=== PATIENT | female | born 1935 | race Caucasian/White ===

== ENCOUNTER → 2017-11-06 | Outpatient (CLI) | payer MEDICARE ==
[~2017-11-06] MED LIST: ACE3 PO; ALB17R INH; ALBU8.5H12 IH; AMI25 PO; AMO500 PO; AMOX-559 PO; CALC-734 PO; CYC10 PO; GUIDMUD PO; HYDR473S4 PO; IBUP-1618 PO; IBUP200C71 PO; IBUP600T22 PO; KET10 PO; MULT1TAB64 PO; NO RTN MEDS; NONE CURRENT; OMEP-125 PO; PER PO; POTA10CA40 PO; PRE20 PO; PRED-420 PO; PRED20TA6 PO; TRA50 PO; [UNRECOGNIZED DRUG - CODE] PO
--- NOTE | 2017-11-06 16:39 | RADIOLOGY IMAGING REPORT ---
FACILITY: [facility] PATIENT NAME: Charu Bañuelos : 1935 MR: [id number] V: [id number] EXAM DATE: ORDERING PHYSICIAN: HIRAL CARRILLO TECHNOLOGIST: Location: [facility] [place] Patient: Charu Bañuelos : 1935 Visit/Account:[id number] Date of Sevice: 11/06/2017 CHEST PA AND LAT HISTORY: Cough. History of smoking. COMPARISON: Chest x-rays are recommended 2012. FINDINGS: Cardiomediastinal contours: The heart is mildly enlarged and there is prominence of the central pulmo nary vessels suggesting chronic pulmonary hypertension. Lungs and pleura: There is mild hyperinflation of the lungs but no findings of an infiltrate or conge stive heart failure. Again noted is linear density in the left lung base suggestive of scar. Bones/soft tissues: There are no findings of a fracture. IMPRESSION: 1. Stable chest x-ray with mild cardiomegaly and prominence of central pulmonary vessels suggestive of chronic pulmonary hypertension. 2. Mild hyperinflation of the lungs. 3. No infiltrate. Report Dictated By: Matthew Morales MD at 11/06/2017 4:34 PM Report E-Signed By: Matthew Morales MD at 11/06/2017 4:36 PM WSN:[email or web address]
== END ==
LOC: RAD 14:39
PROVIDERS: ATTEND Nurse Practitioner Family
DX: R91.8 Other nonspecific abnormal finding of lung field (principal); I51.7 Cardiomegaly; Z87.891 Personal history of nicotine dependence
CPT/HCPCS: 71046

== ENCOUNTER → 2017-12-27 | Outpatient (CLI) | payer MEDICARE ==
[~2017-12-27] MED LIST changes: +ALBU8.5H IH; +ARFO15VI IH; +BUDE0.5A6 IH; +IPRA3AMP21 IH; +OXYGENHOME INH; +PRE5 PO
[2017-12-27 13:38] LABS: PLATELET COUNT, AUTOMATED 248 K/uL (150-450)
== END ==
LOC: LAB 13:17
PROVIDERS: ATTEND Internal Medicine
DX: J44.9 Chronic obstructive pulmonary disease, unspecified (principal); R09.02 Hypoxemia; M19.90 Unspecified osteoarthritis, unspecified site
CPT/HCPCS: 36415; 82040; 82247; 82310; 82374; 82435; 82565; 82947; 84075; 84132; 84155; 84295; 84443; 84450; 84460; 84520; 85025

== ENCOUNTER → 2018-01-01 | Outpatient (CLI) | payer MEDICARE ==
--- NOTE | 2018-01-02 14:49 | RADIOLOGY IMAGING REPORT ---
FACILITY: [facility] PATIENT NAME: LASHAUN RODRIGUEZ : [id number] MR: [id number] V: [id number] EXAM DATE: ORDERING PHYSICIAN: FLORES RENDON TECHNOLOGIST: Dean Griggs EXAMINATION:TWO-DIMENSIONAL ECHOCARDIOGRAPH REASON:HYPOXIA/ SHORTNESS OF BREATH/ COPD. 2D Measurements (normal values in centimeters) LV endLV endRV endVent.LV PostAorticLeftPercent DiastolicSystolicDiastolicSeptumWallRootAtriumShortening (3.5-5.7)(0.9-2.6)(0.6-1.1)(0.6-1.1)(2.0-3.7)(1.9-4.0)(25-35%) [id number]% STROKE VOLUME: 38ml ESTIMATED EJECTION FRACTION: 70% PARASTERNAL LONG AXIS: Overall left ventricular systolic function appears to be normal. Right ventricle is border line enlarged and appears to contract normally. The TAPSE is measured at 2.2. There is mild concentric left ventricular thickening but no evidence for any outflow tract obstruction. Color examination of the valves reveals a trace of mitral insufficiency. The aortic valve appears to open normally. The mitral valve also appears to open normally. PARASTERNAL SHORT AXIS: Again overall left ventricular systolic function appears to be normal. No specific wall motion abnormalities are noted. Aortic valve is trileaflet in configuration with minimal aortic sclerosis. Color examination of the pulmonic valve reveals a mild amount of pulmonic insufficiency. Color examination of the aortic valve was unremarkable. Color examination of the tricuspid valve reveals a mild amount of tricuspid insufficiency. APICAL FOUR AND TWO CHAMBER: Again normal left ventricular systolic function. The right ventricle is the upper range of normal in size. Aortic valve area and mitral valve area both measure within normal range of 2.2 and 3.3cm2 respectively. Left atrial volume is measured within normal range of 17ml/m2. The right atrial volume is moderately increased at 35ml/m2. The tricuspid regurgitation Vmax measured 3.23m/sec. SUBCOSTAL VIEW: No pericardial effusion was noted. No atrioseptal or ventriculoseptal defects were appreciated. Doppler examination of the mitral valve in diastole does reveal the A wave > E wave. IVC is normal in size. OVERALL IMPRESSION: 1. Normal left ventricular ejection fraction of approximately 70% with a Grade 1 mild decrease in diastolic function. 2. Borderline enlargement of the right ventricle with moderate enlargement of the right atrium. The left sided heart chambers are normal in size. 3. Trileaflet aortic valve with minimal aortic sclerosis but no stenosis and no insufficiency was noted. 4. A trace of mitral insufficiency with no mitral stenosis. 5. A mild amount of pulmonic and tricuspid insufficiency with estimated right ventricular systolic pressures at 45mm Hg which does include an estimated right atrial pressure of 3mm Hg indicating moderate pulmonary hypertension and increased right ventricular systolic pressure. Dictated by: Danii Rico M.D. on 01/01/2018 at 21:17 Transcribed by: BUCKY on 01/02/2018 at 10:31 Approved by: Danii Rico M.D. on 01/02/2018 at 14:47 [facility]
== END ==
LOC: US 00:58
PROVIDERS: ATTEND Internal Medicine
DX: I50.30 Unspecified diastolic (congestive) heart failure (principal); I51.7 Cardiomegaly; I37.1 Nonrheumatic pulmonary valve insufficiency; I25.10 Atherosclerotic heart disease of native coronary artery without angina pectoris; I07.1 Rheumatic tricuspid insufficiency; I34.0 Nonrheumatic mitral (valve) insufficiency; I27.20 Pulmonary hypertension, unspecified
CPT/HCPCS: 93306

== ENCOUNTER → 2018-01-04 | Outpatient (CLI) | payer MEDICARE | LOC: RESP 04:45 | PROVIDERS: ATTEND Internal Medicine | DX: J98.4 Other disorders of lung (principal) | CPT/HCPCS: 94060; 94726; 94729 ==

== ENCOUNTER 2018-06-25 09:00 | Outpatient (RCR) | payer MEDICARE, MEDICAID ==
[~2018-06-25 09:00] MED LIST changes: +ALBU1.257 IH; +IBUP-136 PO; -IBUP200C71 PO; +IPRA3AMP10 IH; -IPRA3AMP21 IH; +METH4TAB66 PO; +PRED2.5T6 PO
[2018-06-27] MEDS ORDERED: tylenol PM (09:39)
[2018-07-03] MEDS ORDERED: ALBU2.5V36 INH ×3 (15:26→15:35)
[2018-07-03] MEDS ORDERED: PNEU0.5D3 IM (16:02)
[2018-07-03] MEDS ORDERED: FLU180SY11 IM (16:02)
[2018-07-05] MEDS ORDERED: APIX5TAB PO (11:57)
[2018-07-12] MEDS ORDERED: DIAZ-308 PO (12:13)
== END 2018-07-14 ==
LOC: CARD 09:00
PROVIDERS: ATTEND Internal Medicine
DX: J43.8 Other emphysema (principal); R06.00 Dyspnea, unspecified
CPT/HCPCS: G0424 ×18

== ENCOUNTER 2018-06-27 09:26 | Emergency (ER) | payer MEDICARE, MEDICAID ==
--- NOTE | 2018-06-27 09:31 | ER Report ---
History and Physical Time Seen By MD: 09:31 HPI/ROS CHIEF COMPLAINT: Rapid heart rate HISTORY OF PRESENT ILLNESS: Patient is an 82-year-old female who was in the pulmonary clinic doing some exercising. Prior to the start of exercising her vital signs were taken and she was found to have a very fast heart rate of around 180 bpm. Patient was placed on a rhythm strip and found to be in "SVT". For this reason she was sent to the emergency department for further evaluation. Patient is symptom-free she does state that from time to time she does feel her heart beat fast but currently with a heart rate of 140 bpm she is symptom-free and does not feel like her heart is racing. She denies any chest pain or pressure. She has a history of COPD and is on chronic oxygen but denies any acute shortness of breath. Patient denies any recent illness. She denies any fevers or chills. REVIEW OF SYSTEMS: Constitutional: No fever, no chills. Eyes: No discharge. ENT: No sore throat. Cardiovascular: No chest pain, no palpitations. Respiratory: No cough, no shortness of breath. Gastrointestinal: No abdominal pain, no vomiting. Genitourinary: No hematuria. Musculoskeletal: No back pain. Skin: No rashes. Neurological: No headache. Allergies: Coded Allergies: Sulfa (Sulfonamide Antibiotics) (Verified Allergy, Intermediate, HIVES, 08/27/13) arformoterol (Verified Allergy, Unknown, 06/27/18) Home Meds Active Scripts Prednisone 5 Mg Tab (PREDNISONE 5 MG TAB) 5 Mg Tablet, 5 MG PO QDAY, #90 TAB 1 Refill Prov:FLORES RENDON MD 05/29/18 Oxygen (OXYGEN) Inha, 3 L INH DAILY, #3 L Prov:FLORES RENDON MD 01/14/18 Reported Medications [tylenol PM] No Conflict Check 06/27/18 Discontinued Scripts Albuterol Sulfate (ALBUTEROL SULFATE) 1.25 Mg/3 Ml Vial.neb, 1.25 MG IH QID PRN for SHORTNESS OF BREATH, #60 VIAL 9 Refills Prov:FLORES RENDON MD 06/05/18 Methylprednisolone (METHYLPREDNISOLONE) 4 Mg Tab.ds.pk, 4 MG PO DIRECTED, #1 DOSE-PACK Prov:FLORES RENDON MD 05/29/18 Albuterol Sulfate 90 Mcg/Act (PROAIR HFA 90 MCG/ACT) 8.5 Gm Hfa.aer.ad, 2 PUFF IH Q4-6H PRN for SHORTNESS OF BREATH, #1 INHALER 3 Refills Prov:FLORES RENDON MD 12/27/17 Past Medical/Surgical History Past medical history for allergic rhinitis, COPD, history of osteoarthritis, history of appendectomy in 2008 history of carpal tunnel release in [place] in 2010 Hx Smoking: Yes (1/2 ppd) Smoking Status: Former Smoker Hx Substance Use Disorder: No Hx Alcohol Use: Yes (1 in the evening) Constitutional Vital Sign - Last 24 Hours 06/27/18 06/27/18 06/27/18 06/27/18 09:31 09:31 09:44 09:56 Temp 98.4 Pulse 118 133 Resp 24 24 B/P (MAP) 128/81 (97) 128/81 Pulse Ox 91 97 O2 Delivery Nasal Cannula O2 Flow Rate 3.0 06/27/18 06/27/18 06/27/18 06/27/18 10:00 10:26 10:30 11:00 Pulse 126 Resp 20 B/P (MAP) 107/71 (83) 101/80 (87) 121/77 (92) Pulse Ox 96 06/27/18 06/27/18 06/27/18 06/27/18 11:05 11:30 11:35 12:00 Pulse 97 92 Resp 24 35 B/P (MAP) 102/88 (93) 112/87 (95) Pulse Ox 97 96 06/27/18 06/27/18 12:05 12:08 Pulse 89 Resp 14 B/P (MAP) 126/69 (88) Pulse Ox 97 Physical Exam General/Constitutional: Patient is awake, alert, nontoxic and in no acute respiratory distress. On chronic O2 Head: Normocephalic and atraumatic. Eyes: Conjunctival clear, Sclera are clear and anicteric. Ears:External canals are clear. Tympanic membranes are clear with normal landmarks and light reflex. Nares: No rhinorrhea or bleeding. Turbinates are pink and moist. Oropharyngeal: Mucous membranes are moist. Neck: Supple, no adenopathy. Cardiovascular: Heart is regular rhythm with tachycardic rate at approximately 130 bpm. Pulmonary: Lungs are clear to auscultation bilaterally. There are no wheezes, rales, or rhonchi. Chest rise is symmetrical Abdomen: Soft, nontender, no guarding or peritoneal signs. Extremities: No gross deformities, No peripheral cyanosis. Able to move all 4 extremities. Neuro: Alert and oriented X3, Skin: No rashes, skin is warm dry and well perfused. Medical Decision Making Data Points Result Diagram: 06/27/18 0939 06/27/18 0939 Laboratory Hematology Test 06/27/18 09:39 Red Blood Count 4.63 M/uL (4.17-5.56) Mean Corpuscular Volume 98.0 fL (80.0-96.0) Mean Corpuscular Hemoglobin 33.0 pg (26.0-33.0) Mean Corpuscular Hemoglobin Concent 33.7 g/dL (32.0-36.0) Red Cell Distribution Width 13.3 % (11.5-14.5) Mean Platelet Volume 8.8 fL (7.2-11.1) Neutrophils (%) (Auto) 59.5 % (39.4-72.5) Lymphocytes (%) (Auto) 30.6 % (17.6-49.6) Monocytes (%) (Auto) 7.8 % (4.1-12.4) Eosinophils (%) (Auto) 1.5 % (0.4-6.7) Basophils (%) (Auto) 0.6 % (0.3-1.4) Nucleated RBC Relative Count (auto) 0.0 /100WBC Neutrophils # (Auto) 4.6 K/uL (2.0-7.4) Lymphocytes # (Auto) 2.3 K/uL (1.3-3.6) Monocytes # (Auto) 0.6 K/uL (0.3-1.0) Eosinophils # (Auto) 0.1 K/uL (0.0-0.5) Basophils # (Auto) 0.0 K/uL (0.0-0.1) Nucleated RBC Absolute Count (auto) 0.00 K/uL Prothrombin Time 12.7 seconds (12.0-14.4) Prothromb Time International Ratio 0.95 Activated Partial Thromboplast Time 38 seconds (23-35) D-Dimer Quantitative (PE/DVT) 0.62 ug/ml (0-0.50) Sodium Level 145 mmol/L (137-145) Potassium Level 3.4 mmol/L (3.5-5.0) Chloride Level 107 mmol/L (98-107) Carbon Dioxide Level 26 mmol/L (22-31) Blood Urea Nitrogen 13 mg/dl (7-18) Creatinine 0.90 mg/dl (0.52-1.04) Glomerular Filtration Rate Calc > 60.0 Random Glucose 130 mg/dl (75-110) Calcium Level 9.7 mg/dl (8.4-10.2) Total Bilirubin 0.5 mg/dl (0.2-1.3) Aspartate Amino Transf (AST/SGOT) 29 U/L (0-35) Alanine Aminotransferase (ALT/SGPT) 30 U/L (0-56) Alkaline Phosphatase 124 U/L (0-126) Troponin I 0.031 ng/ml B-Type Natriuretic Peptide 50 pg/ml (0-100) Total Protein 8.1 g/dl (6.3-8.2) Albumin 4.6 g/dl (3.5-5.0) Chemistry Test 06/27/18 09:39 White Blood Count 7.7 k/uL (4.5-11.0) Red Blood Count 4.63 M/uL (4.17-5.56) Hemoglobin 15.3 g/dL (12.0-16.0) Hematocrit 45.4 % (34.0-47.0) Mean Corpuscular Volume 98.0 fL (80.0-96.0) Mean Corpuscular Hemoglobin 33.0 pg (26.0-33.0) Mean Corpuscular Hemoglobin Concent 33.7 g/dL (32.0-36.0) Red Cell Distribution Width 13.3 % (11.5-14.5) Platelet Count 242 K/uL (150-450) Mean Platelet Volume 8.8 fL (7.2-11.1) Neutrophils (%) (Auto) 59.5 % (39.4-72.5) Lymphocytes (%) (Auto) 30.6 % (17.6-49.6) Monocytes (%) (Auto) 7.8 % (4.1-12.4) Eosinophils (%) (Auto) 1.5 % (0.4-6.7) Basophils (%) (Auto) 0.6 % (0.3-1.4) Nucleated RBC Relative Count (auto) 0.0 /100WBC Neutrophils # (Auto) 4.6 K/uL (2.0-7.4) Lymphocytes # (Auto) 2.3 K/uL (1.3-3.6) Monocytes # (Auto) 0.6 K/uL (0.3-1.0) Eosinophils # (Auto) 0.1 K/uL (0.0-0.5) Basophils # (Auto) 0.0 K/uL (0.0-0.1) Nucleated RBC Absolute Count (auto) 0.00 K/uL Prothrombin Time 12.7 seconds (12.0-14.4) Prothromb Time International Ratio 0.95 Activated Partial Thromboplast Time 38 seconds (23-35) D-Dimer Quantitative (PE/DVT) 0.62 ug/ml (0-0.50) Glomerular Filtration Rate Calc > 60.0 Calcium Level 9.7 mg/dl (8.4-10.2) Total Bilirubin 0.5 mg/dl (0.2-1.3) Aspartate Amino Transf (AST/SGOT) 29 U/L (0-35) Alanine Aminotransferase (ALT/SGPT) 30 U/L (0-56) Alkaline Phosphatase 124 U/L (0-126) Troponin I 0.031 ng/ml B-Type Natriuretic Peptide 50 pg/ml (0-100) Total Protein 8.1 g/dl (6.3-8.2) Albumin 4.6 g/dl (3.5-5.0) Coagulation Test 06/27/18 09:39 Prothrombin Time 12.7 seconds Prothromb Time International Ratio 0.95 Activated Partial Thromboplast Time 38 seconds D-Dimer Quantitative (PE/DVT) 0.62 ug/ml EKG/Imaging EKG Interpretation EKG from August 2013 shows normal sinus rhythm no significant ST segment or T- wave abnormalities. Ventricular rate is 79 bpm. Imaging FACILITY: [facility] PATIENT NAME: Charu Bañuelos : 1935 MR: [id number] V: [id number] EXAM DATE: ORDERING PHYSICIAN: RAFA BALLESTEROS TECHNOLOGIST: Location: [facility] [place] Patient: Charu Bañuelos : 1935 Visit/Account:[id number] Date of Sevice: 06/27/2018 CHEST SINGLE AP HISTORY: Chest Pain COMPARISON: None available FINDINGS: Frontal view chest obtained. Lines/tubes: EKG leads overlie the thorax. Lungs/pleura: Mild flattening of the hemidiaphragms suggesting air trapping. No gross pulmonary infiltrate, effusion or pneumothorax. No evidence of congestive failure. Cardiomediastinum and lizzie: Atherosclerotic calcifications aortic arch. Bones/soft tissues: Degenerative changes right greater than left glenohumeral and acromioclavicular joints. Degenerative changes and levocurvature thoracolumbar spine. Additional findings: None. IMPRESSION: Chronic findings without evidence of an acute intrathoracic process or other significant interval change. Report Dictated By: Martín Aaron MD at 06/27/2018 11:07 AM Report E-Signed By: Martín Aaron MD at 06/27/2018 11:08 AM WSN:[id number] FACILITY: [facility] PATIENT NAME: Charu Bañuelos : 1935 MR: [id number] V: [id number] EXAM DATE: ORDERING PHYSICIAN: RAFA BALLESTEROS TECHNOLOGIST: Location: [facility] [place] Patient: Charu Bañuelos : 1935 Visit/Account:[id number] Date of Sevice: 06/27/2018 CTA CHEST WW/O CNTR (PULM ANG) HISTORY: tachycardia TECHNIQUE: CTA chest with intravenous contrast attention to pulmonary arteries. Sagittal, coronal and slab 3D MIP coronal reconstructed images were also cr eated for further evaluation and interpretation. One of the following dose optimization techniques was utilized in the performance of this exam: automated exposure control; adjustment of the mA and/or kV according to the patient's size; or use of an iterative reconstruction technique. Specific details can be referenced in the facility's radiology CT exam operational policy. CONTRAST: 75 cc Isovue-370 IV. COMPARISON: None. FINDINGS: Heart/vessels: There is no filling defect in either the right or left pulmonary arterial vascular tree. Lungs/pleura: In the left upper lobe there is a spiculated nodule that measures 1.9 x 2.4 cm. Right lung is clear. Mediastinum: Normal. Lymph nodes: There is mild prominence of the lymph nodes tissue in the left hilum. Right hilum is normal. Visualized upper abdomen: Visualized portions of the liver, spleen, adrenal glands, and pancreas are normal. Bones/soft tissues: Normal. IMPRESSION: 1. No evidence of pulmonary embolus. 2. Spiculated nodule versus a focal consolidation the left upper lobe. This would be a difficult lesion to biopsy, as a posterior approach would certainly create a pneumothorax, and an anterior approach would be difficult to reach. Differential diagnosis is pulmonary malignancy, versus pneumonia. If clinically indicated, a CT-guided biopsy could be attempted. 3. Clear right lung. Report Dictated By: Daren Lopez at 06/27/2018 11:32 AM Report E-Signed By: Daren Lopez at 06/27/2018 11:43 AM WSN:[id number] ED Course/Re-evaluation ED Course 06/27/2018 10:33:25 am heart rate is continuing to increase slowly. Current heart rate is in the mid 120s. Patient remains symptom and pain free. Initial troponin was negative d-dimer was slightly elevated. I discussed obtaining a CTA of the chest to look for PE. Patient and family member agrees with plan. 06/27/2018 10:50:05 am heart rate continues to decrease. Just prior to leaving for CAT scan heart rate was 105 bpm. My suspicion is the patient may have actually had a run of SVT which broke spontaneously and now she is having some residual tachycardia that is slowly decreasing over time. We will get the CT s can of the chest to look for PE. If negative we will likely have the patient be placed on a Holter monitor and have her follow-up with cardiology. Decision to Disposition Date: Jun 27, 2018 Decision to Disposition Time: 12:29 Depart Departure Latest Vital Signs Vital Signs Date Time Temp Pulse Resp B/P (MAP) Pulse Ox O2 Delivery O2 Flow Rate FiO2 06/27/18 12:08 126/69 (88) 06/27/18 12:05 89 14 97 06/27/18 09:44 3.0 06/27/18 09:31 98.4 Nasal Cannula Impression: Primary Impression: Tachycardia, paroxysmal Condition: Improved Disposition: HOME OR SELF-CARE Referrals: FLORES RENDON MD (PCP) Call this week to schedule a follow-up appointment reguarding the new finding of an left upper lung mass that was seen on CT scan today. It is likely that you will require some form of biopsy Patient Instructions: Supraventricular Tachycardia (GEN) Additional Instructions: Bring your prescription for your Holter monitor to the pulmonary and cardiology department to obtain a Holter monitor. The results will go directly to RAFA Goodman MD Jun 27, 2018 09:31
[2018-06-27] MEDS ORDERED: tylenol PM (09:39)
[2018-06-27] MEDS ORDERED: ASPIRIN 81 MG CHEW PO ONE (09:40)
[2018-06-27 09:49] LABS: PLATELET COUNT, AUTOMATED 242 K/uL (150-450)
--- NOTE | 2018-06-27 09:50 | EKG ---
[place] [facility] [place] LASHAUN RODRIGUEZ : [id number] MR: [id number] V: [id number] EXAM DATE: ORDERING PHYSICIAN: RAFA BALLESTEROS TECHNOLOGIST: Test Reason : rapid heart rate Blood Pressure : / mmHG Vent. Rate : 116 BPM Atrial Rate : 116 BPM P-R Int : 156 ms QRS Dur : 080 ms QT Int : 334 ms P-R-T Axes : 059 022 051 degrees QTc Int : 464 ms Sinus tachycardia Possible Left atrial enlargement Borderline ECG Confirmed by SCOOTER PANDYA ([id number]) on 06/27/2018 12:15:26 PM Referred By: Confirmed By:SCOOTER PANDYA
[2018-06-27 09:55] LABS: INR 0.95
[2018-06-27] MEDS ORDERED: NS(*) 0.9% 500 ML BAG 500 ML IV ONE (10:10)
[2018-06-27] MEDS ORDERED: NS(*) 0.9% 50 ML BAG 50 ML ONE (10:40)
[2018-06-27] MEDS ORDERED: IOPAMIDOL 76% 75 ML INFUS BTL 75 ML ONE (10:40)
--- NOTE | 2018-06-27 11:12 | RADIOLOGY IMAGING REPORT ---
FACILITY: [facility] PATIENT NAME: Charu Bañuelos : 1935 MR: [id number] V: [id number] EXAM DATE: ORDERING PHYSICIAN: RAFA BALLESTEROS TECHNOLOGIST: Location: [facility] - [place] Patient: Charu Bañuelos : 1935 Visit/Account:[id number] Date of Sevice: 06/27/2018 CHEST SINGLE AP HISTORY: Chest Pain COMPARISON: None available FINDINGS: Frontal view chest obtained. Lines/tubes: EKG leads overlie the thorax. Lungs/pleura: Mild flattening of the hemidiaphragms suggesting air trapping. No gross pulmonary infil trate, effusion or pneumothorax. No evidence of congestive failure. Cardiomediastinum and lizzie: Atherosclerotic calcifications aortic arch. Bones/soft tissues: Degenerative changes right greater than left glenohumeral and acromioclavicular j oints. Degenerative changes and levocurvature thoracolumbar spine. Additional findings: None. IMPRESSION: Chronic findings without evidence of an acute intrathoracic process or other significant interval leesa nge. Report Dictated By: Martín Aaron MD at 06/27/2018 11:07 AM Report E-Signed By: Martín Aaron MD at 06/27/2018 11:08 AM WSN:[id number]
--- NOTE | 2018-06-27 11:48 | RADIOLOGY IMAGING REPORT ---
FACILITY: [facility] - [place] PATIENT NAME: Charu Bañuelos : 1935 MR: [id number] V: [id number] EXAM DATE: ORDERING PHYSICIAN: RAFA BALLESTEROS TECHNOLOGIST: Location: [facility] - [place] Patient: Charu Bañuelos : 1935 Visit/Account:[id number] Date of Sevice: 06/27/2018 CTA CHEST WW/O CNTR (PULM ANG) HISTORY: tachycardia TECHNIQUE: CTA chest with intravenous contrast attention to pulmonary arteries. Sagittal, coronal a nd slab 3D MIP coronal reconstructed images were also created for further evaluation and interpretati on. One of the following dose optimization techniques was utilized in the performance of this exam: a utomated exposure control; adjustment of the mA and/or kV according to the patient's size; or use of an iterative reconstruction technique. Specific details can be referenced in the facility's radiolog y CT exam operational policy. CONTRAST: 75 cc Isovue-370 IV. COMPARISON: None. FINDINGS: Heart/vessels: There is no filling defect in either the right or left pulmonary arterial vascular tr ee. Lungs/pleura: In the left upper lobe there is a spiculated nodule that measures 1.9 x 2.4 cm. Right lung is clear. Mediastinum: Normal. Lymph nodes: There is mild prominence of the lymph nodes tissue in the left hilum. Right hilum is no rmal. Visualized upper abdomen: Visualized portions of the liver, spleen, adrenal glands, and pancreas are normal. Bones/soft tissues: Normal. IMPRESSION: 1. No evidence of pulmonary embolus. 2. Spiculated nodule versus a focal consolidation the left upper lobe. This would be a difficult lesi on to biopsy, as a posterior approach would certainly create a pneumothorax, and an anterior approach would be difficult to reach. Differential diagnosis is pulmonary malignancy, versus pneumonia. If cl inically indicated, a CT-guided biopsy could be attempted. 3. Clear right lung. Report Dictated By: Daren Lopez at 06/27/2018 11:32 AM Report E-Signed By: Daren Lopez at 06/27/2018 11:43 AM WSN:[id number]
[2018-06-27 12:08] VITALS: BP 126/69
== END 2018-06-27 12:17 | disposition home or self-care (01) ==
LOC: ER 09:29
DX: I47.9 Paroxysmal tachycardia, unspecified (principal); R79.89 Other specified abnormal findings of blood chemistry; R07.89 Other chest pain; I70.0 Atherosclerosis of aorta
CPT/HCPCS: 71045; 71275; 83880; 84484; 85025; 85379; 85610; 85730; 93005; 96360; 99284; A9270; J7040; J7050; Q9967; 82040; 82247; 82310; 82374; 82435; 82565; 82947; 84075; 84132; 84155; 84295; 84450; 84460; 84520

== ENCOUNTER → 2018-07-01 | Outpatient (CLI) | payer MEDICARE, MEDICAID ==
[~2018-07-01] MED LIST changes: +ALBU2.5V36 INH; +FLU180SY11 IM; +PNEU0.5D3 IM; +tylenol PM
--- NOTE | 2018-07-03 16:15 | RT HOLTER TEST ---
FACILITY[place] [facility] [place] PATIENT NAME: LASHAUN RODRIGUEZ : [id number] MR: [id number] V: [id number] EXAM DATE: ORDERING PHYSICIAN: RAFA BALLESTEROS TECHNOLOGIST: Hook-up date: 2018-07-01 13:12:00 Duration: 47:59:00 Test Indications: RAPID HEART BEAT Medications: DIARY NOT RETURNED 307326 QRS complexes 1581 Ventricular ectopics which represent <1 % of total QRS comp. 75799 Supraventricular ectopics which represent 5 % of total QRS comp. * Paced QRS complexes which represent % of total QRS comp. VENTRICULAR ECTOPY 1577 Isolated 3 Bigeminal Cycles 2 Couplets 0 Runs 0 Beats in Runs * Beats LONGEST at * BPM at :: -- * Beats FASTEST at * BPM at :: -- SUPRAVENTRICULAR ECTOPY 9208 Isolated 1000 Couplets 337 Runs 1156 Beats in Runs 9 Beats LONGEST at 131 BPM at 15:04:14 2018-07-01 3 Beats FASTEST at 205 BPM at 16:20:45 2018-07-01 HEART RATES 51 MIN at 06:00:32 2018-07-02 82 AVG 188 MAX at 16:14:33 2018-07-01 LONGEST RR 1.416 secs at 05:52:59 2018-07-02 S-T LEVELS Channel 1 -12.800 mm MIN at 13:12:00 2018-07-01 -12.800 mm MAX at 13:12:00 2018-07-01 Channel 2 -12.800 mm MIN at 13:12:00 2018-07-01 -12.800 mm MAX at 13:12:00 2018-07-01 Channel 3 -12.800 mm MIN at 13:12:00 2018-07-01 -12.800 mm MAX at 13:12:00 2018-07-01 Intermittent atrial fibrillation/flutter of variable length with episodes of tachycardia. Occasional ventricular ectopy with some bigeminy and rare couplets. No runs were recorded. No pausesof more than two (2) seconds were recorded. Confirmed by ANA RAY ([id number]) on 07/03/2018 4:15:17 PM Referred By: JUSTICE Overread By: ANA RAY
== END ==
LOC: RESP 01:39
PROVIDERS: ATTEND Emergency Medicine
DX: R00.2 Palpitations (principal)
CPT/HCPCS: 93225; 93226

== ENCOUNTER → 2018-07-15 | Outpatient (CLI) | payer MEDICARE, MEDICAID ==
[~2018-07-15] MED LIST changes: +APIX5TAB PO; +DIAZ-308 PO; +GADOBENATE 529MG/1ML 15ML VIAL IVP ONE; +LORA-788 PO; +RANI-366 PO
--- NOTE | 2018-07-15 16:18 | RADIOLOGY IMAGING REPORT ---
FACILITY: [facility] - [place] PATIENT NAME: Charu Bañuelos : 1935 MR: [id number] V: [id number] EXAM DATE: ORDERING PHYSICIAN: FLORES RENDON TECHNOLOGIST: Location: [facility] - [place] Patient: Charu Bañuelos : 1935 Visit/Account:[id number] Date of Sevice: 07/15/2018 BRAIN W W/O CONTRAST For staging ADDITIONAL PERTINENT HISTORY: None. COMPARISON STUDIES: None. TECHNIQUE: Multi-planar, multi-sequence brain MRI was performed with and without IV contrast adminis tration. Contrast: 14 mL MultiHance FINDINGS: Ventricles / sulci / fissures: Age-appropriate Masses / hemorrhage / midline shift: Negative. White matter: There are extensive abnormal areas of increased FLAIR and T2 signal intensity througho ut the subcortical and periventricular white matter without evidence of restricted diffusion mass eff ect or contrast enhancement Sanderson-white differentiation: Normal. Extra-axial fluid collections: Negative. Intracranial vasculature and dural sinuses: Negative. Skull base / calvarium: Negative. Visualized mastoid air cells / paranasal sinuses: Well aerated. Orbits: Negative. Upper neck:Negative. IMPRESSION: Extensive abnormal white matter signal intensity throughout the subcortical and periventricular white matter without evidence of restricted diffusion contrast enhancement or mass effect. The appearance is nonspecific and likely related to chronic small vessel ischemia No evidence of intracranial metastases Report Dictated By: Mariama Alonso MD at 07/15/2018 4:09 PM Report E-Signed By: Mariama Alonso MD at 07/15/2018 4:13 PM WSN:[id number]
== END ==
LOC: MRI 03:15
PROVIDERS: ATTEND Internal Medicine
DX: I67.82 Cerebral ischemia (principal)
CPT/HCPCS: 70553; A9577

== ENCOUNTER → 2018-07-19 | Outpatient (CLI) | payer MEDICAID ==
--- NOTE | 2018-07-19 16:45 | RADIOLOGY IMAGING REPORT ---
FACILITY: [facility] PATIENT NAME: Charu Bañuelos : 1935 MR: [id number] V: [id number] EXAM DATE: ORDERING PHYSICIAN: MIGUELANGEL CAMARILLO TECHNOLOGIST: Location: [facility] [place] Patient: Charu Bañuelos : 1935 Visit/Account:[id number] Date of Sevice: 07/19/2018 MRI of the thoracic spine with and without contrast Indication: Thoracic back pain. No known injury. Comparison: None available Technique: Multiplanar multisequence MR images were obtained through the thoracic spine. A total of 1 4 mL IV MultiHance contrast was administered. Findings: Focal prominent edema and enhancement seen within the superior anterior and posterior aspect of the T 10 vertebral body which may relate to endplate changes and/or Schmorl's nodes. Metastatic lesions co nsidered less likely. Remainder of the thoracic spine vertebra show no abnormal enhancement on the p ostcontrast images. Along with this, there is chronic mild anterior wedging of the T7 vertebral body noted. Disc desiccation seen throughout the thoracic spine levels. There is mild right convex curvature of the thoracic spine with apex at T7-T8. There is mild disc space narrowing and diffuse disc bulges seen at T6-T7, T7-T8, T8-T9, T9-T10,, and T10-T11. There is no severe central or foraminal narrowing throughout these levels. Impression: 1. No acute alignment abnormality of the thoracic spine. 2. Multilevel degenerative changes seen with no severe central or foraminal narrowing as above. 3. Prominent posterior of increased signal and enhancement of the superior endplate of T10 likely re present endplate changes and/or Schmorl's nodes with metastatic foci considered unlikely. Report Dictated By: Bal Aguirre MD at 07/19/2018 4:34 PM Report E-Signed By: Bal Aguirre MD at 07/19/2018 4:41 PM WSN:[id number]
== END ==
LOC: MRI 13:58
PROVIDERS: ATTEND Internal Medicine Hematology
DX: C34.90 Malignant neoplasm of unspecified part of unspecified bronchus or lung (principal); M51.34 Other intervertebral disc degeneration, thoracic region
CPT/HCPCS: 72157; A9577

== ENCOUNTER → 2018-09-28 | Outpatient (CLI) | payer MEDICARE, MEDICAID ==
[~2018-09-28] MED LIST changes: +ALB18R INH; +ASPI-1471 PO; -GADOBENATE 529MG/1ML 15ML VIAL IVP ONE; +IBUP800T37 PO
--- NOTE | 2018-09-28 14:50 | RADIOLOGY IMAGING REPORT ---
FACILITY: [facility] PATIENT NAME: Charu Bañuelos : 1935 MR: [id number] V: [id number] EXAM DATE: ORDERING PHYSICIAN: [facility] TECHNOLOGIST: Location: [facility] Patient: Charu Bañuelos : 1935 Visit/Account:[id number] Date of Sevice: 09/28/2018 2 VIEWS CHEST INDICATION: Pneumothorax. COMPARISON: 06/27/2018. FINDINGS: Cardiomediastinal silhouette and pulmonary vessels within normal limits. Left-sided pigtail pleural catheter is in place. No significant residual pneumothorax is identified. No pleural effusion. No focal areas consolidation. The right lung is clear without consolidation, pneumothorax or effusion. No discrete nodule. Upper abdomen is unremarkable. No acute bony abnormality. Subcutaneous air seen in the left chest w all. IMPRESSION: 1. Left pigtail pleural catheter is in place. No significant residual pneumothorax or effusion. No focal infiltrate. I called report to Dr. Che at 09/28/2018 2:46 PM. Report Dictated By: Jassi Lynn at 09/28/2018 2:23 PM Report E-Signed By: Jassi Lynn at 09/28/2018 2:47 PM WSN:[id number]
== END ==
LOC: RAD 13:33
PROVIDERS: ATTEND Radiology Diagnostic Radiology
DX: J93.9 Pneumothorax, unspecified (principal); J91.8 Pleural effusion in other conditions classified elsewhere
CPT/HCPCS: 71046

== ENCOUNTER 2018-10-04 14:40 | Outpatient (RCR) | payer MEDICARE, MEDICAID ==
[2018-07-18 11:45] VITALS: BP 140/79
--- NOTE | 2018-07-19 01:55 | ONCOLOGY CONSULTATION ---
EVENT DATE: July 18, 2018 REFERRING PHYSICIAN Danny Stapleton MD REASON FOR CONSULTATION Evaluation and management of left upper lobe mass of the left lung. ONCOLOGY HISTORY Patient is an 82-year-old female who presented with tachycardia with atrial fibrillation, and the patient had a CTA chest done on the June, which came back negative for pulmonary embolism, but a 2.4 cm left upper lobe lung mass was noted. So, the patient had a PET/CT scan done on the June, which showed a 3 cm left upper lobe mass with SUV 8.5, with left hilar/AP window/mediastinal lymph node metastasis, with possible distal left paratracheal lymph node metastasis. There was nonspecific uptake at T10 vertebral body with SUV 4.4, but without definitive CT correlate. PAST MEDICAL HISTORY Allergic rhinitis, osteoarthritis, COPD, left upper lobe lung mass. PAST SURGICAL HISTORY Appendectomy in September 2008, tonsillectomy, total hysterectomy, bilateral cataract surgery in 2010. FAMILY HISTORY Negative for cancer or blood diseases. SOCIAL HISTORY Patient is with three children. She is a retired hairdresser. She quit tobacco one year ago, after one pack a day for 70 years. She drinks a cocktail every evening and occasional beer. No abuse of illicit drugs. CURRENT MEDICATIONS 1. Eliquis 5 mg twice daily. 2. Prednisone 5 mg daily. 3. Oxygen 3L per minute. 4. Albuterol nebulizer p.r.n. 5. Tylenol-PM p.r.n. ALLERGIES: No known drug allergies. REVIEW OF SYSTEMS CONSTITUTIONAL: No appetite or weight change. No fever, chills, or sweating. No recent infection. HEENT: Ears: No tinnitus or hearing problem. Nose: No nasal discharge or epistaxis. Throat: No sore throat or mouth ulcers. Eyes: No diplopia or visual changes. RESPIRATORY: She has cough. She is on oxygen. CARDIOVASCULAR: No chest pain, orthopnea, or paroxysmal nocturnal dyspnea (PND). No edema. No palpitations. GASTROINTESTINAL: No nausea or vomiting. No diarrhea or constipation. No change in bowel movements. No heartburn or swallowing difficulties. No abdominal pain. No jaundice. No hematemesis, melena, or rectal bleeding. GENITOURINARY: No hematuria or dysuria. MUSCULOSKELETAL: She has pain in the left hip and also in her hands from osteoarthritis. NEUROLOGICAL: No tingling or numbness in the hands or feet. No headaches or convulsions. HEMATOLOGIC/LYMPHATIC: No bleeding or easy bruising. No weakness or fatigue. No enlarged lymph nodes. SKIN: No skin rash or lumps. PSYCHIATRIC: No anxiety or depression. PHYSICAL EXAMINATION GENERAL: Looks stable. Well developed, well nourished, and in no acute distress. VITAL SIGNS: Blood pressure 140/79, pulse 77 per minute, respirations 16 per minute, temperature 98.4. Pulse ox 94% on 2L oxygen. HEENT: Head: Atraumatic. No sinus tenderness to palpation. Eyes: No icterus or conjunctivitis. Mouth and throat: No oral thrush or mucositis. NECK: Supple. No cervical or supraclavicular lymphadenopathy. LUNGS: Clear to auscultation and percussion bilaterally. HEART: Regular rate and rhythm. No gallops, murmurs, clicks, or rubs. ABDOMEN: Soft and lax. No tenderness. No hepatosplenomegaly. No masses. EXTREMITIES: No cyanosis, clubbing, or edema. LYMPHATICS: No peripheral lymphadenopathy. NEUROLOGICAL: Conscious, alert, and oriented times three. No focal motor or sensory deficits. PSYCHIATRIC: Mood and affect appear normal. SKIN: No skin rash, bruise, or purpuric eruption. ASSESSMENT Left upper lobe lung mass, 3 cm, by PET/CT scan done on the June,with SUV 8.5, with left hilar/AP window/mediastinal lymph node metastasis and possible lymph node metastasis in the distal left paratracheal lymph node, with nonspecific uptake at T10 vertebral body with SUV 4.4, but without CT correlate. Given this information, patient will need a biopsy of the mass or the mediastinal lymph node. As location of her left upper lobe mass is risky for pneumothorax. I am planning to refer the patient to a community center coordinator for bronchoscopy and biopsy of one of the mediastinal lymph nodes if it is possible. If not, then mediastinoscopy will be the plan of management to get the biopsy from the cancer or from the lymph node. Because of her increased uptake at T10 vertebral body with SUV 4.4, but without definitive CT correlate, I am planning to get an MRI of the thoracic spine for further evaluation to see if there is a mass there, because this will change the staging from stage IIIA to stage IV. I will see the patient after the above for further evaluation and management. Patient had an MRI of the brain done on the June, which came back negative for brain metastasis. PLAN 1. Pulmonology consult for bronchoscopy with biopsy of the mediastinal lymph node. 2. MRI of the thoracic spine for evaluation of the abnormal uptake of the T10 vertebral body by PET scan. 3. Patient to return after the above for further evaluation and management. 4. Patient to contact us for any concerns or complaints. ILIANAD
--- NOTE | 2018-07-19 08:24 | NUR ---
SW introduced self and services to the patient and family at the patient's consult appointment yesterday.
--- NOTE | 2018-07-22 15:11 | NUR ---
Pt requested a visit with ELE regarding organizing donating her body to science. SW met with the patient and completed the application. Pt also had questions about why her accounts at [facility] were sent to [facility]. Pt and SW contacted the medicaid biller and learned that the patient had been making payments on her [facility] account, and the [facility] accounts were not being paid on. SW left message with Pau in the business office about this issue. The pt also has debt with [facility], and believes they do not have the correct medicaid information. SW will fax new medicaid information to [facility]. The pt received a notice stating she was eligible for medicare extra help, which should help pay for her eliquis. SW will look into this more tomorrow. The pt states she would like a portable concentrator instead of tanks and has mentioned this at [facility], but does not believe any progress has been made toward this exchange. ELE will also address this with [facility].
--- NOTE | 2018-08-03 07:35 | NUR ---
ELE visited again with the pt today about what was learned in regard to medicaid coverage for her prescriptions. sW learned that the pt does not have Medicaid coverage for prescriptions, instead she is on a medicare savings program which means the state pays her medicare premiums (including part D - if she were to have that). She was also approved for Medicare "extra help" which means that her medicare D premiums would be $0 and she would only pay a minimal amount for any prescription drugs (between $3-$9). The patient has not yet been taking the prescribed Eliquis. She was unable to afford the first dose ($500 maria teresa) without help. SW looked into the Eliquis free 30-day trial card, however the patient is ineligible for this because she has medicare. SW then was able to help the patient apply for Medicare Part D online and the patient selected a [employer] program. This will not likely start for another 10 or more days, and the patient states she will still not purchase the eliquis to take during that time. There is the chance that the patient may not be approved for the plan. However, I do feel this is unlikely, since she has already been approved for Medicare Extra Help. While the patient was in at the clinic, SW contacted [facility] to address a couple issues she has been having with her oxygen. Mainly, the issue being she wanted to try and get a portable oxygen concentrator. Ironically, Loc, who answered the phone stated they had already received that request from the pt and had ordered a machine, which had arrived earlier that day. Loc insisted the pt come over to [facility] to get set up on the machine after the appointment at the cancer center. The pt is still upset that she has some outstanding bills at [facility] and her "medicaid" is not covering it, however SW explained that the Medicaid would not act as medical coverage and they would not be picking up the part of the bill that medicare is leaving for her to pay. Unfortunately that remaining amount is her responsibility.
[2018-08-19 08:39] VITALS: BP 130/77
[2018-08-19 08:46] LABS: PLATELET COUNT, AUTOMATED 194 K/uL (150-450)
[2018-08-19 08:55] LABS: INR 0.94
--- NOTE | 2018-08-23 09:39 | NUR ---
ELE assisted pt with completion of her [facility] patient assistance application and submitted this to the business office. ELE also rec'd information from the pt that she was approved for medicare part d and encouraged the pt to machine operator picker her eliquis at the pharmacy.
[2018-08-30 14:31] VITALS: BP 147/84
--- NOTE | 2018-08-31 20:28 | EL-TARABILY ONCOLOGY NOTE ---
EVENT DATE: August 30, 2018 DIAGNOSIS Left upper lobe lung mass. CHIEF COMPLAINT Patient is here today for followup of her upper lobe mass of the left lung. ONCOLOGY HISTORY Patient is an 82-year-old female who presented with tachycardia with atrial fibrillation, and the patient had a CTA chest done on the June, which came back negative for pulmonary embolism, but a 2.4 cm left upper lobe lung mass was noted. So, the patient had a PET/CT scan done on the June, which showed a 3 cm left upper lobe mass with SUV 8.5, with left hilar/AP window/mediastinal lymph node metastases with possible distal left paratracheal lymph node metastasis. There was nonspecific uptake at T10 vertebral body with SUV 4.4, but without definitive CT correlate. MRI thoracic spine done on the June did not show any evidence of metastasis in the thoracic spine. HISTORY OF PRESENT ILLNESS Patient is here today for followup of her left upper lobe lung mass. Patient is complaining of some pain in the left hip and also in her hands from osteoarthritis. PAST MEDICAL HISTORY 1. Allergic rhinitis. 2. Osteoarthritis. 3. COPD. 4. Left upper lobe lung mass. PAST SURGICAL HISTORY 1. Appendectomy in September 2008. 2. Tonsillectomy. 3. Total hysterectomy. 4. Bilateral cataract surgery in 2010. FAMILY HISTORY Negative for cancer or blood diseases. 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 She drinks a cocktail every evening and occasional beer. No abuse of illicit drugs. CURRENT MEDICATIONS 1. Eliquis 5 mg twice daily. 2. Prednisone 5 mg daily. 3. Oxygen 3L per minute. 4. Albuterol nebulizer p.r.n. 5. Tylenol PM p.r.n. ALLERGIES: No known drug allergies. REVIEW OF SYSTEMS CONSTITUTIONAL: No appetite or weight change. No fever, chills, or sweating. No recent infection. HEENT: Ears: No tinnitus or hearing problem. Nose: No nasal discharge or epistaxis. Throat: No sore throat or mouth ulcers. Eyes: No diplopia or visual changes. RESPIRATORY: No shortness of breath. No cough, expectoration, or hemoptysis. CARDIOVASCULAR: No chest pain, orthopnea, or paroxysmal nocturnal dyspnea (PND). No edema. No palpitations. GASTROINTESTINAL: No nausea or vomiting. No diarrhea or constipation. No change in bowel movements. No heartburn or swallowing difficulties. No abdominal pain. No jaundice. No hematemesis, melena, or rectal bleeding. GENITOURINARY: No hematuria or dysuria. MUSCULOSKELETAL: Patient has some pain in the left hip and in her hands from osteoarthritis. NEUROLOGICAL: Patient denies any tingling or numbness in her hands or feet. No headaches or convulsions. HEMATOLOGIC/LYMPHATIC: No bleeding or easy bruising. No weakness or fatigue. No enlarged lymph nodes. SKIN: No skin rash or lumps. PSYCHIATRIC: No anxiety or depression. PHYSICAL EXAMINATION GENERAL: Looks stable. Well developed, well nourished, and in no acute distress. VITAL SIGNS: Blood pressure 147/84, pulse 106 per minute, respirations 16 per minute, temperature 98.5, pulse ox 92% on room air. HEENT: Head: Atraumatic. No sinus tenderness to palpation. Eyes: No icterus or conjunctivitis. Mouth and Throat: No oral thrush or mucositis. NECK: Supple. No cervical or supraclavicular lymphadenopathy. LUNGS: Clear to auscultation and percussion bilaterally. HEART: Regular rate and rhythm. No gallops, murmurs, clicks, or rubs. ABDOMEN: Soft and lax. No tenderness. No hepatosplenomegaly. No masses. EXTREMITIES: No cyanosis, clubbing, or edema. LYMPHATICS: No peripheral lymphadenopathy. NEUROLOGICAL: Conscious, alert, and oriented times three. No focal motor or sensory deficits. PSYCHIATRIC: Mood and affect appear normal. SKIN: No skin rash, bruise, or purpuric eruption. DIAGNOSTIC DATA MRI of the thoracic spine did not reveal any evidence of metastatic disease. ASSESSMENT Left upper lobe lung mass, 3 cm by PET/CT scan done on the June with SUV 8.5 with left hilar/aortopulmonary window/mediastinal lymph node metastases and possible lymph node metastasis in the distal left paratracheal lymph node, with nonspecific uptake at T10 vertebral body with SUV 4.4, but without CT correlate. MRI of the thoracic spine did not reveal any evidence of metastasis. I talked to Dr. Rendon at [facility], who reviewed the scans, and he thought that CT-guided biopsy would be a better option than endoscopic biopsy. I am planning to refer the patient for CT-guided biopsy of the left upper lobe mass. I will check her CBC, PT, and PTT prior to her procedure. I will see her in the week after the biopsy to decide about further management. I explained that to the patient and her son, and they are agreeable with the plan of management. PLAN 1. CT-guided biopsy of the left upper lobe lung mass. 2. CBC, PT, and PTT to be checked prior to the procedure. 3. Patient to return in one week after the biopsy for further evaluation and management. 4. Patient to contact us for any new concerns or complaints. ADRIANNE
--- NOTE | 2018-09-12 13:58 | NUR ---
NURSE CALLED PATIENT REGARDING APPOINTMENT FOR CT SCAN. PT HAD CALLED THE CLINIC YESTERDAY AND REQUESTED TO HAVE THE APPOINTMENT TIME CHANGED TO AFTER THOMAS. PATIENT STATED THAT NO ONE FROM OUR CLINIC HAD CALLED HER REGARDING AN APPOINTMENT TIME. OUR OFFICE HAD MADE 4 ATTEMPTS TO CONTACT THE PATIENT LEAVING HER MESSAGES AND TWICE TO CONTACT HER SON. PATIENT STATED THAT "I AM ALWAYS HOME AND DID NOT GET ANY CALLS AND IF I HAD IT WOULD HAVE SHOWN UP ON MY CALLER ID". NURSE AGAIN STATED THAT OUR OFFICE HAD INDEED TRIED TO CALL HER. SHE IS WANTING TO RESCHEDULE THE CT SCAN ALTHOUGH SHE STATES THAT SHE DOES NOT KNOW WHEN IT IS. NURSE OFFERED TO PROVIDE HER WITH THE NUMBER TO CALL AT [facility] TO SCHEDULE AND SHE STATED THAT SHE DID NOT NEED IT THAT SHE HAD THE NUMBER ON HER CALLER ID. SHE ASKED THE NURSE IF SHE SHOULD CALL AND DO THAT NOW AND NURSE ADVISED HER THAT SHE DEFINITELY SHOULD. SHE VERBALIZED UNDERSTANDING.
[2018-09-26 08:43] VITALS: BP 150/68
[2018-09-26 09:07] LABS: PLATELET COUNT, AUTOMATED 227 K/uL (150-450)
[2018-09-26 09:15] LABS: INR 0.99
[~2018-10-04] VITALS: Ht 150.8 cm; Wt 67.0 kg
[2018-10-04 14:53] VITALS: BP 138/62
[2018-10-04] MEDS ORDERED: CYANOCOBALAMIN 1000MCG/ML VIAL IM ONLY ONE (15:05)
--- NOTE | 2018-10-06 04:01 | EL-TARABILY ONCOLOGY NOTE ---
EVENT DATE: October 04, 2018 DIAGNOSIS Left upper lobe adenocarcinoma, 3 cm. CHIEF COMPLAINT Patient is here today for followup of her left upper lobe lung cancer with adenocarcinoma. ONCOLOGY HISTORY Patient is an 82-year-old female who presented with tachycardia with atrial fibrillation, and the patient had a CTA chest done on the June, which came back negative for pulmonary embolism, but a 2.4 cm left upper lobe lung mass was noted. So, the patient had a PET/CT scan done on the June, which showed a 3 cm left upper lobe mass with SUV 8.5, with left hilar/AP window/mediastinal lymph node metastases with possible distal left paratracheal lymph node metastasis. There was nonspecific uptake at T10 vertebral body with SUV 4.4, but without definitive CT correlate. MRI thoracic spine done on the June did not show any evidence of metastasis in the thoracic spine. Brain MRI done on the June without any evidence of metastasis. CT-guided biopsy of the left upper lobe mass done on the September came back positive for moderately to poorly differentiated acinar-predominant adenocarcinoma consistent with lung primary. Her procedure was complicated with small pneumothorax, which resolved. Her stage is stage IIIA, given that she has mediastinal adenopathy on the same side of the lung mass. HISTORY OF PRESENT ILLNESS Patient is here today for followup of her left lung cancer. She is complaining of cough with expectoration and wheezing. She has some pain in her hands from arthritis, but other than that, she is doing really very well. PAST MEDICAL HISTORY 1. Allergic rhinitis. 2. Osteoarthritis. 3. COPD. 4. Left upper lobe lung mass. PAST SURGICAL HISTORY 1. Appendectomy in September 2008. 2. Tonsillectomy. 3. Total hysterectomy. 4. Bilateral cataract surgery in 2010. FAMILY HISTORY Negative for cancer or blood diseases. 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 She drinks a cocktail every evening and occasional beer. No abuse of illicit drugs. CURRENT MEDICATIONS 1. Eliquis 5 mg twice daily. 2. Prednisone 5 mg daily. 3. Oxygen 3L per minute. 4. Albuterol nebulizer p.r.n. 5. Tylenol PM p.r.n. ALLERGIES: No known drug allergies. REVIEW OF SYSTEMS CONSTITUTIONAL: No appetite or weight change. No fever, chills or sweating. No recent infection. HEENT: Ears: No tinnitus or hearing problem. Nose: No nasal discharge or epistaxis. Throat: No sore throat or mouth ulcers. Eyes: No diplopia or visual changes. RESPIRATORY: She has cough with expectoration and wheezing. CARDIOVASCULAR: No chest pain, orthopnea, or paroxysmal nocturnal dyspnea (PND). No edema. No palpitations. GASTROINTESTINAL: No nausea or vomiting. No diarrhea or constipation. No change in bowel movements. No heartburn or swallowing difficulties. No abdominal pain. No jaundice. No hematemesis, melena or rectal bleeding. GENITOURINARY: No hematuria or dysuria. MUSCULOSKELETAL: She has pain in her hands from arthritis. NEUROLOGICAL: No tingling or numbness in the hands or feet. No headaches or convulsions. HEMATOLOGIC/LYMPHATIC: No bleeding or easy bruising. No weakness or fatigued. No enlarged lymph nodes. SKIN: No skin rash or lumps. PSYCHIATRIC: No anxiety or depression. PHYSICAL EXAMINATION GENERAL: Looks stable. Well-developed, well-nourished, and in no acute distress. VITAL SIGNS: Blood pressure 138/62, pulse 70 per minute, respirations 16 per minute, temperature 98, pulse oximetry 93% on 2L oxygen. HEENT: Head: Atraumatic. No sinus tenderness to palpation. Eyes: No icterus or conjunctivitis. Mouth and throat: No oral thrush or mucositis. NECK: Supple. No cervical or supraclavicular lymphadenopathy. LUNGS: Clear to auscultation and percussion bilaterally. HEART: Regular rate and rhythm. No gallops, murmurs, clicks or rubs. ABDOMEN: Soft and lax. No tenderness. No hepatosplenomegaly. No masses. EXTREMITIES: No cyanosis, clubbing or edema. LYMPHATICS: No peripheral lymphadenopathy. NEUROLOGICAL: Conscious, alert and oriented times three. No focal motor or sensory deficits. PSYCHIATRIC: Mood and affect appear normal. SKIN: No skin rash, bruise or purpuric eruption. ASSESSMENT Stage IIIA left upper lobe lung adenocarcinoma, 3 cm by PET scan done on the June, with SUV 8.5, with left hilar/aorticopulmonary window/mediastinal lymph node metastasis and possible lymph node metastasis in the distal left paratracheal lymph node, with nonspecific uptake at T10 vertebral body, with SUV of 4.4, but without CT correlate. MRI of the thoracic spine did not reveal any evidence of metastasis. CT-guided biopsy of the left upper lobe mass done on the September came back positive for moderately to poorly differentiated acinar-predominant adenocarcinoma consistent with lung primary. Given this information, patient has stage IIIA adenocarcinoma of the left upper lobe of the left lung. I talked to the patient and her son today regarding further management, which will include concurrent chemoradiation. I am planning to treat her with four cycles of carboplatin and Taxol every three weeks during her radiation therapy, to be followed by immune therapy with one of the checkpoints with durvalumab every three weeks for a total of one year. I explained that to the patient, and the patient is agreeable with the plan of management. I am planning to refer her to the radiation oncologist, and hopefully we will start her treatment soon, within the next week. I am planning to start B12 1000 mcg every six weeks and folic acid 1 mg in preparation to start her chemotherapy with Alimta. PLAN 1. Vitamin B12 1000 mcg deep subcutaneous today. 2. Folic acid 1 mg daily to start today. 3. Referral to radiation oncologist for concurrent chemoradiation. 4. Chemotherapy with carboplatin and Taxol every three weeks for four cycles. 5. CBC and chem panel to be checked weekly after starting chemotherapy. 6. Patient to return in three weeks after starting chemotherapy with CBC and chem panel. 7. Patient to contact us for any new concerns or complaints. MTDD
[2018-10-15] MEDS ORDERED: NS(*) 0.9% 500 ML BAG 500 ML IV PRN (13:25)
[2018-10-15] MEDS ORDERED: ALTEPLASE RECOMB 2 MG VIAL IVP PRN (13:25)
[2018-10-15] MEDS ORDERED: PALONOSETRON 0.25 MG/5 ML VIAL IVP PRN (13:25)
[2018-10-15] MEDS ORDERED: NS(*) 0.9% 100 ML BAG 100 ML IVPB PRN (13:25)
[2018-10-15] MEDS ORDERED: DEXTROSE 5%(*) 100 ML BAG 100 ML IVPB PRN (13:25)
[2018-10-15] MEDS ORDERED: WATER FOR INJ,STERILE 20 ML IVP PRN (13:25)
== END 2018-10-15 ==
LOC: ONC 14:40
PROVIDERS: ATTEND Internal Medicine Hematology
DX: C34.12 Malignant neoplasm of upper lobe, left bronchus or lung (principal); C77.8 Secondary and unspecified malignant neoplasm of lymph nodes of multiple regions; Z87.891 Personal history of nicotine dependence; R05 Cough; Z99.81 Dependence on supplemental oxygen; Z79.899 Other long term (current) drug therapy; J44.9 Chronic obstructive pulmonary disease, unspecified; M19.041 Primary osteoarthritis, right hand; M19.042 Primary osteoarthritis, left hand
CPT/HCPCS: 36415; 85025; 85610; 85730; 96372; G0463; J3420; 82040; 82247; 82310; 82374; 82435; 82565; 82947; 84075; 84132; 84155; 84295; 84450; 84460; 84520; 99202; 99212

== ENCOUNTER 2018-12-10 11:00 | Outpatient (RCR) | payer MEDICARE, MEDICAID ==
--- NOTE | 2018-10-08 17:48 | TOBIN CONSULT ---
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 Tumor standardized uptake value is 8.5. Tumor size estimated 3.5 cm. CHIEF COMPLAINT Patient is here for initial consultation for radiation therapy. She is referred by Dr. Langston, who is planning combined modality therapy for this patient. 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 She recently was receiving pulmonary rehab therapy when she developed tachycardia and was transferred to the Emergency Room for further evaluation. She was noted to be in atrial fibrillation, and a chest x-ray was performed revealing an abnormal lung mass. From there, the patient states she had a CT-guided needle biopsy of the mass in [place]. She had a PET/CT scan in [place]. The latter was obtained on 07/17/18. The study reveals a 3.0 x 3.0 cm left upper lobe spiculated mass with prominent FDG activity (SUV max 8.5). There is an AP window metabolic lymph node at 1.2 x 2.6 cm with an SUV of 5.2. There is an ill-defined left hilar lymph node with an SUV max of 6.7. There is a borderline left paratracheal lymph node measuring 1.3 cm x 1.4 cm with an SUV max of 3.4. Finally, there appears to be a borderline uptake of a lymph node in the right hilum with an SUV of 2.4, but that remains nonspecific. No signs of metastatic disease to liver, adrenal glands, or bone. There was a nonspecific area of uptake at T10, but no CT correlate. The patient is felt to have stage IIIA disease given the primary mass and the mediastinal ipsilateral lymph node involvement. Her biopsy returned adenocarcinoma (acinar predominant). Patient denies any bone pain or any headaches. No significant weight loss. Patient is using oxygen at 2L. She occasionally has a dry cough, but no hemoptysis. She is seen for initial radiation oncology consultation. PAST MEDICAL HISTORY 1. Lung carcinoma. 2. Osteoarthritis. 3. Allergic rhinitis. 4. COPD. SURGICAL HISTORY 1. Appendectomy 2008. 2. Tonsillectomy. 3. Total hysterectomy. 4. Bilateral cataract surgery 2010. FAMILY HISTORY Both parents lived into their early 80s. Patient has five siblings. There is a family history of lung carcinoma in one brother. SOCIAL HISTORY Patient is , three children. Retired hairdresser. Previously smoked one pack per day for 70 years, stopped smoking one year ago. Social alcohol use. MEDICATIONS 1. Eliquis 5 mg b.i.d. 2. Prednisone 5 mg daily. 3. Oxygen 2L. 4. Albuterol nebulizer p.r.n. 5. Tylenol PM p.r.n. ALLERGIES None. COMPREHENSIVE REVIEW OF SYSTEMS Notable for arthritic pain in the hands. Otherwise negative. PHYSICAL EXAMINATION GENERAL: An 82-year-old female of medium build. KPS 90%. VITAL SIGNS: BP 147/86, pulse 78, respirations 16, temperature 98.4, O2 sat 92% on 2L. Weight 144. LYMPH NODES: No lymphadenopathy detected. LUNGS: Slightly distant breath sounds bilaterally, but no rales or wheezes today. HEART: Sounds were regular. ABDOMEN: Soft. No gross organomegaly. EXTREMITIES: Again, no edema or cyanosis or clubbing. NEUROLOGIC: Intact. IMPRESSION This is an 82-year-old female who presents with stage IIIA adenocarcinoma of the lung. Primary mass in the left upper lobe. PLAN The present plan is to treat her with combined modality therapy with external beam radiation therapy and concurrent chemotherapy. Dr. Langston is planning on four cycles of carboplatin and Taxol on a q.3-week schedule, to be followed by immune therapy with durvalumab q.3 weeks for a total of one year. On the radiation details, I plan to treat the primary mass and the mediastinal lymph nodes to 50 Gy in 28 fractions with subsequent boost to the left upper lobe mass to approximately 6800 cGy as standard fractionation. Radiation course will be delivered Sunday through Sunday. It will take approximately seven weeks to complete. I will proceed with the targeting CT simulation within the next 48 hours. I expect treatments will start the first part of next week. I reviewed treatment indications, potential acute late side effects, and survival figures with the patient and her son today. She is fully agreeable to proceed with therapy, and all questions were answered to her satisfaction. Patient will be monitored closely throughout the treatment program. Thank you for the referral and excellent records which accompany the patient today for initial consultation. ADRIANNE
--- NOTE | 2018-11-04 14:22 | RADIOLOGY IMAGING REPORT ---
FAC[place] [facility] [place] NAME: Charu Bañuelos : 1935 MR: [id number] V: [id number] EXAM DATE: ORDERING PHYSICIAN: MAIA BEAR TECHNOLOGIST: Location: [facility] [place] Patient: Charu Bañuelos : 1935 Visit/Account:[id number] Date of Sevice: 11/04/2018 EXAMINATION: CT Chest Without and With Contrast 11/04/2018 10:15 AM HISTORY: Lung cancer TECHNIQUE: Spiral scans were obtained through the chest before and during injection of nonionic iodi nated intravenous contrast. Contrast: 75 mL of IV Isovue 370. One of the following dose optimization techniques was utilized in the performance of this exam: Autom ated exposure control; adjustment of the mA and/or kV according to the patient's size; or use of an i terative reconstruction technique. Specific details can be referenced in the facility's radiology C T exam operational policy. COMPARISON STUDIES: 06/27/2018. FINDINGS: Lungs / pleura: Spiculated suprahilar mass on the left measures 3.3 x 2.7 cm (series 5 image 40), by my measurement similar to the previous. This appears to occlude upper lobe bronchial. There is thic kening along the interlobar fissure on the left with nodularity, most notably a submillimeter perifis sural nodular focus projecting posteriorly (sagittal image 91). Grouped micronodular foci are presen t in the superior segment of the lower lobe which is not the area of the lung involved by the prior b ronchial obstruction. No significant new finding elsewhere. Mediastinum / lizzie: negative Heart / pericardium: negative Vessels: Atherosclerosis includes coronary disease. PICC catheter enters on the right with the tip i n SVC. Musculoskeletal / Body wall: negative Lymph node assessment: Lymph node along the front of the left hilum 2.0 x 1.6 cm (series 4 image 45), similar to previous. AP window lymph node 1.5 x 1.1 cm, also similar to previous. Bilobed prevascu lar lymph node on the left 2.4 x 1.2 cm, stable to minimally diminished in measurement from previous. Lobulated pretracheal lymph node 1.9 x 1.5 cm (images 34 through 36), increased from previous. Mor e superior 8 mm right paratracheal lymph node (image 20) was not evident on the previous. 7 to 8 mm left thoracic inlet lymph node (image 23) is minimally increased in overall bulk from previous. No s upraclavicular adenopathy evident. Lower neck: negative Upper abdomen: Small hiatal hernia. Small nodule anterolaterally in front of the spleen presumably i s an incidental accessory splenule. No focal liver lesion demonstrated. No adrenal nodule. IMPRESSION: 1. Suprahilar mass on the left is similar by measurement comparing with 06/27/2018. Mildly progresse d thickening along the adjacent interlobar fissure, however. 2. Left hilar and some of the mediastinal adenopathy is also for the most part similar to previous a lthough there is increasing mediastinal adenopathy as discussed above. Report Dictated By: Daren Decker MD at 11/04/2018 2:00 PM Report E-Signed By: Daren Decker MD at 11/04/2018 2:15 PM WSN:[email or web address]
[2018-12-03 12:14] LABS: PLATELET COUNT, AUTOMATED 275 K/uL (150-450)
[2018-12-03 13:43] VITALS: BP 122/77
[2018-12-09 11:10] VITALS: BP 100/53
[2018-12-09 11:16] LABS: PLATELET COUNT, AUTOMATED 92 K/uL (150-450)
[~2018-12-10 11:00] MED LIST changes: +D5W(*) 1000 ML BAG 1,000 ML IV ONE; +FLUC200T52 PO; +HYDR473S9; +IOPAMIDOL 61% 100 ML INFUS BTL 100 ML ONE; +IOPAMIDOL 61% 50 ML INFUS BTL 50 ML ONE; +LIDO
== END 2018-12-10 11:10 | disposition home or self-care (01) ==
LOC: RAON 11:00
PROVIDERS: ATTEND Radiology Radiation Oncology
DX: Z51.0 Encounter for antineoplastic radiation therapy (principal); C34.90 Malignant neoplasm of unspecified part of unspecified bronchus or lung; R59.0 Localized enlarged lymph nodes
CPT/HCPCS: 36592; 71270; 77280; 77290; 77336; 77386; 77412; 85025; 96360; J7070; Q9967; 77295; 77300; 77301; 77334; 77338; 82040; 82247; 82310; 82374; 82435; 82565; 82947; 84075; 84132; 84155; 84295; 84450; 84460; 84520

== ENCOUNTER 2018-12-19 10:30 | Outpatient (RCR) | payer MEDICARE, MEDICAID ==
--- NOTE | 2018-10-17 16:01 | PT INITIAL EVALUATION ---
MEDICAL DIAGNOSIS: Lung Cancer TREATMENT DIAGNOSIS: Lung Cancer DATE OF ONSET: 10/17/18 SUBJECTIVE: Charu Morrison" is a 82 year old female presenting to oncology rehabilitation for education and baseline evaluation for recent diagnosis of left lung cancer. Quita is to start chemotherapy intervention at the time of evaluation as well as has already started radiation therapy early this week. Pt is to undergo 4 cycles of Carboplatin every 3 weeks with concurrent radiation throughout. Quita has a history of smoking with COPD and has previously participated in pulmonary rehabilitation classes. Quita reports that she does no recreational exercise but is active in her ADL's and keeps moving frequently throughout the day. Pt lives with her son in town and her dog. REHAB PROBLEM LIST: Decreased Endurance Decreased Function Decreased ADL's Decreased Mobility PREVIOUS MEDICAL HISTORY: See EMR OCCUPATION: Retired OBJECTIVE: PICC line is placed in L proximal UE. ROM: Shoulder ROM (L,R): flexion: 130,130, Abd: 150, 165, ER: 60, 72 Strength: Shoulder Strength MMT (L,R): flexion: 4+/5, 4+/5, Abd: 4+/5, 4+/5, ER/IR: 5/5, 5/5 Sensation: Pt reports no numbness or tingling in digits at this time Mobility: ECOG Performance Status: grade 1 Other Objective Findings: Functional Assessment of Cancer Treatment (FACT-G): PWB: , SWB: 15.04/20, EWB: , FWB: , Total: 78.7/108 ASSESSMENT: Quita presents with signs and symptoms consistent with recent diagnosis of lung cancer. Pt received education on physical side effects including postural changes, shoulder impairment, scar tissue formation, neuropathy and fatigue. Oncology rehabilitation is indicated for this patient to assist with pt maintenance of condition with ongoing oncological intervention for improved function with ADL's. Short Term Goals In 4 MO pt will maintain ECOG performance status of grade 2 or less for maintained function with ADL's. In 4 MO pt will improve L shoulder ROM to equal to that of the R UE for improved function with ADL's. Patient's Goals Maintain function with ongoing treatment PLAN: Patient to be seen for Manual Therapy/STM/MET Strengthening/condition Ice/Heat Range of Motion Spinal Stabilization Ultrasound Stretching Iontophoresis Neuromuscular Re-ed Closed Chain Program Electrical Stim Posture/Body mechanics Gait Trg/Balance Trg Biofeedback Home Exercise Program Mech./Manual Traction Therapeutic Activities 1x/MO for 4 Months If you have any questions, comments, or concerns about this report or plan, please contact me at . Thank you, Ivnoe Piña, PT, DPT, CLT MTDD
--- NOTE | 2018-11-28 18:10 | PT PLAN OF CARE ---
Physician: ROSALIE Bates Patient is being seen: 1x/MO Therapist: Ivone Piña, PT, DPT, CLT Medical Diagnosis: Lung Cancer Treatment Diagnosis: Lung Cancer Date of Onset: 10/17/18 Date of Initial Evaluation: 10/17/18 Date patient was last seen: 11/28/18 Number of treatments: 2 Number of cancellations/No shows: 0 INTERVENTIONS: Manual Therapy/STM/MET Strengthening/condition Ice/Heat Range of Motion Spinal Stabilization Ultrasound Stretching Iontophoresis Neuromuscular Re-ed Closed Chain Program Electrical Stim Posture/Body mechanics Gait Trg/Balance Trg Biofeedback Home Exercise Program Mech./Manual Traction Therapeutic Activities GOALS: In 4 MO pt will maintain ECOG performance status of grade 2 or less for maintained function with ADL's. MET In 4 MO pt will improve L shoulder ROM to equal to that of the R UE for improved function with ADL's. PATIENT'S GOAL: Maintain function with ongoing treatment Status of Patient's Goals: In Progress Patient Compliance: Poor Prognosis: Good Reasons for continuing therapy: "Quita" shows good progression with ongoing tx with minimal physical side effects at this time and maintenance of ADL's and functional mobility. Pt shows slight increase in R hip pain which she associates with arthritis, but has increased over the last couple weeks. Pt started on gentle AROM exercises to maintain joint mobility, however pt refused wanting to start strengthening of physical assessment of the joint. Pt shows no side effects of radiation at this time with good shoulder mobility and function. Further PT to continue to monitor pt function with ADL's as well as monitor hip function with ongoing treatment. ROM: Shoulder ROM (L,R): flexion: 130,130, Abd: 150, 165, ER: 60, 72 Strength: Shoulder Strength MMT (L,R): flexion: 4+/5, 4+/5, Abd: 4+/5, 4+/5, ER/IR: 5/5, 5/5 Sensation: Pt reports no numbness or tingling in digits at this time Mobility: ECOG Performance Status: grade 2 Other Objective Findings: Functional Assessment of Cancer Treatment (FACT-G) EVAL: PWB: , SWB: 15.7, EWB: , FWB: , Total: 78.7/108 (FACT-G) 11/28/18: PWB: , SWB: 15.04/20, EWB: , FWB: , Total: 77.7/108 If you have any questions, comments, or concerns about this report or plan, please contact me at . Thank you, Ivone Piña, PT, DPT, CLT MTDD
[~2018-12-19 10:30] MED LIST changes: -D5W(*) 1000 ML BAG 1,000 ML IV ONE; -IOPAMIDOL 61% 100 ML INFUS BTL 100 ML ONE; -IOPAMIDOL 61% 50 ML INFUS BTL 50 ML ONE; +LORA-630 PO
== END 2019-01-15 ==
LOC: PT 10:30
PROVIDERS: ATTEND Nurse Practitioner
DX: C34.92 Malignant neoplasm of unspecified part of left bronchus or lung (principal); J44.9 Chronic obstructive pulmonary disease, unspecified; Z87.891 Personal history of nicotine dependence
CPT/HCPCS: 97162

== ENCOUNTER 2019-01-01 11:00 | Outpatient (RCR) | payer MEDICAID, MEDICARE ==
[~2019-01-01 11:00] MED LIST changes: -OMEP-125 PO; +OMEP-126 PO; -RANI-366 PO; +RANI-54 PO
[2019-01-23] MEDS ORDERED: APIX5TAB PO (14:44)
[2019-01-23] MEDS ORDERED: FLUT1BLS5 IN (14:44)
[2019-01-28] MEDS ORDERED: APIX5TAB PO (11:14)
[2019-02-04] MEDS ORDERED: PANT40TA65 PO (15:01)
[2019-02-04] MEDS ORDERED: METO25TA23 PO (15:01)
[2019-02-04] MEDS ORDERED: HYDR-385 PO (15:04)
[2019-02-20] MEDS ORDERED: LORA-630 PO ×2 (14:28→14:31)
--- NOTE | 2019-02-20 15:54 | Oncology Note ---
Attempted to send Lorazapam Rx RF via [facility] in [place] today after patient stopped by in clinic in person and asked for RF to be sent to local [facility]. sent X 2 though [facility] didn't receive it. I called it in myself to [facility] pharmacist, Lorazapam 0.5 mg to take 1-2 tabs PO Q 6 hours Chemo-induced N/V or anxiety, # 30, No refills. JORDAN Linda APRN,LACE TEARING SUPERVISOR February 20, 2019 15:54
== END 2019-03-09 ==
LOC: RAON 11:00
PROVIDERS: ATTEND Radiology Radiation Oncology
DX: Z51.0 Encounter for antineoplastic radiation therapy (principal); C34.90 Malignant neoplasm of unspecified part of unspecified bronchus or lung; C77.8 Secondary and unspecified malignant neoplasm of lymph nodes of multiple regions
CPT/HCPCS: 77290; 77336; 77386

== ENCOUNTER 2019-01-01 11:29 | Outpatient (RCR) | payer MEDICARE, MEDICAID ==
--- NOTE | 2018-10-16 15:49 | ONCOLOGY CHEMO TEACHING ---
DATE OF EVENT: October 16, 2018 DIAGNOSIS Stage IIIA left upper lobe adenocarcinoma. The patient and her son are seen today for chemotherapy teaching. A total of 60 minutes was spent with them, 100% of which was [id number] counseling. HISTORY OF PRESENT ILLNESS Patient is an 82-year-old female who presented in June with tachycardia and atrial fibrillation. CTA of the chest was negative for pulmonary embolism, but a 2.4 cm upper lobe lung mass was noted. PET CT scan on 07/17/18 showed a 3 cm left upper lobe mass with an SUV of 8.5 with left hilar and mediastinal lymph node metastases and possible distal left paratracheal lymph node metastases. MRI of the thoracic spine did not show any evidence of metastasis. MRI of the brain was negative. CT-guided biopsy of the left upper lobe mass on 09/27/18 was positive for a moderately to poorly differentiated, acinar-predominant adenocarcinoma consistent with lung primary. Procedure was complicated with a small pneumothorax which resolved. Began radiation on 10/15/18. She will begin concurrent carboplatin and Alimta on 10/17/18. PAST MEDICAL HISTORY 1. Allergic rhinitis. 2. Osteoarthritis. 3. COPD. 4. Stage IIIA lung cancer. 5. Atrial fibrillation. SURGICAL HISTORY 1. Appendectomy with lysis of adhesions, September 2008. 2. Tonsillectomy. 3. Total hysterectomy. 4. Bilateral cataract surgery, 2010. FAMILY HISTORY Negative for malignancy or blood disorder. SOCIAL HISTORY Patient is with three grown children. One son is currently living with her. 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 She drinks a cocktail every evening and occasional beer. No use of illicit drugs. MEDICATIONS 1. Aspirin 325 mg daily. 2. Albuterol nebulizer. 3. Albuterol inhaler. 4. Ibuprofen p.r.n. 5. Loratadine 10 mg daily. 6. Prednisone 5 mg daily. 7. Ranitidine 150 mg daily. ALLERGIES SULFA and ARFORMOTEROL. DISCUSSION 1. A total of 60 minutes was spent in counseling today, 100% of which was face to face. At today's chemotherapy teaching session, we discussed her diagnosis as well as the planned chemotherapy regimen and toxicities associated with carboplatin and Alimta. Handouts of each drug were provided and reviewed in detail. 2. Side effects and toxicities of chemotherapy agents included, but were not limited to: A. Bone marrow suppression, specifically neutropenia. She is instructed to contact our offices with any signs of infection. CBC will be monitored routinely. We discussed common sense approaches including routine hand washing and avoidance of crowds/sick people if neutropenic. B. GI side effects. Discussed the possibility of nausea, vomiting, diarrhea and constipation. She will receive IV antiemetics and will be prescribed antiemetics for home use. If she were to have diarrhea, recommended Imodium. If she were to have constipation, recommended Senna-S or Miralax routinely. Further interventions will be made based on side effects. C. side effects. Discussed the importance of adequate hydration (minimum 8 cups of fluid per day) and emptying the bladder on a regular basis. IV hydration can be scheduled as needed. D. Mouth sores. Recommended salt water or baking soda gargles as needed. E. Skin toxicity. Discussed that chemotherapy was very drying to the skin and mucous membranes. Recommended routine moisturizing as well as sun protection. F. Neurotoxicity. Discussed symptoms of peripheral neuropathy. She will be monitored for these symptoms and will notify us if progressive. G. Alopecia. Her hair will likely thin with this regimen. We have a wig shop that she can look into if she would like to pursue this. H. Fatigue. Discussed that this is one of the most common complaints of patients undergoing chemotherapy. I have encouraged her to remain as active as possible, taking frequent rests as needed. I. Infusion reaction. Reviewed IV premedications. She will be monitored closely during infusions. 3. I have instructed the patient to call our office if she is prescribed any new medications. It is recommended that multiple supplements or herbal medications may not be taken as these may interfere with the action of the chemotherapy. 4. Discussed dietary issues associated with chemotherapy including anorexia and changes in taste. A handout of nutrition information is given. 5. Office contact information ([phone]) is given. I have encouraged the patient to call with any issues regarding treatment. 6. Patient will receive B12 every six weeks. She will start folic acid 1 mg daily. She feels ready to begin treatment tomorrow and will continue with daily radiation. MTDD
--- NOTE | 2018-10-16 17:06 | RADIOLOGY IMAGING REPORT ---
FACILITY: [facility] - [place] PATIENT NAME: Charu Bañuelos : 1935 MR: [id number] V: [id number] EXAM DATE: ORDERING PHYSICIAN: MIGUELANGEL CAMARILLO TECHNOLOGIST: [place] [facility] [place]: Charu Bañuelos : 1935 Visit/Account:[id number] Date of Sevice: 10/16/2018 Exam type: US GUIDANCE VASCULAR ACCESS, PICC LINE INSERTION History: Needed for intravenous chemotherapy Comparison: None. Findings: Informed consent was obtained. The patient's left arm was prepped and draped usual sterile fashion. Local anesthesia was accomplished with 1% lidocaine. Utilizing both sonographic and fluoroscopic gu idance a 39 cm long trimmed 4 Burundian single lumen power PICC inserted via the patent left basilic vei n with the distal tip resting in superior vena cava. The PICC line was flushed with 5 mL of saline f lush. Proximal portion PICC line was adhered the patient's arm the sterile dressing. Sonographic im ages were saved to PACS. The procedure was without apparent cortication. The fluoroscopy dose area product was 82.31 micro-Sanderson per meter squared. IMPRESSION: 1. Successful placement of a 39 cm long trimmed 4 Burundian single lumen power PICC inserted via the pa tent left basilic vein with the distal tip resting in superior vena cava Report Dictated By: Mariama Alonso MD at 10/16/2018 4:57 PM Report E-Signed By: Mariama Alonso MD at 10/16/2018 5:01 PM WSN:[email or web address]
--- NOTE | 2018-10-16 17:06 | RADIOLOGY IMAGING REPORT ---
FACILITY: [facility] PATIENT NAME: Charu Bañuelos : 1935 MR: [id number] V: [id number] EXAM DATE: ORDERING PHYSICIAN: MIGUELANGEL CAMARILLO TECHNOLOGIST: [place] [facility] [place] Patient: Charu Bañuelos : 1935 Visit/Account:[id number] Date of Sevice: 10/16/2018 Exam type: US GUIDANCE VASCULAR ACCESS, PICC LINE INSERTION History: Needed for intravenous chemotherapy Comparison: None. Findings: Informed consent was obtained. The patient's left arm was prepped and draped usual sterile fashion. Local anesthesia was accomplished with 1% lidocaine. Utilizing both sonographic and fluoroscopic gu idance a 39 cm long trimmed 4 Croatian single lumen power PICC inserted via the patent left basilic vei n with the distal tip resting in superior vena cava. The PICC line was flushed with 5 mL of saline f lush. Proximal portion PICC line was adhered the patient's arm the sterile dressing. Sonographic im ages were saved to PACS. The procedure was without apparent cortication. The fluoroscopy dose area product was 82.31 micro-Sanderson per meter squared. IMPRESSION: 1. Successful placement of a 39 cm long trimmed 4 Croatian single lumen power PICC inserted via the pa tent left basilic vein with the distal tip resting in superior vena cava Report Dictated By: Mariama Alonso MD at 10/16/2018 4:57 PM Report E-Signed By: Mariama Alonso MD at 10/16/2018 5:01 PM WSN:[email or web address]
[2018-10-17 09:06] VITALS: BP 122/76
[2018-10-17] MEDS: PALONOSETRON 0.25 MG/5 ML VIAL IVP PRN (10:02)
[2018-10-17] MEDS: NS(*) 0.9% 500 ML BAG 500 ML IV PRN (10:03)
[2018-10-24 11:48] LABS: PLATELET COUNT, AUTOMATED 125 K/uL (150-450)
--- NOTE | 2018-10-24 14:58 | ONCOLOGY FOLLOW UP NOTE ---
EVENT DATE: October 24, 2018 CHIEF COMPLAINT Followup for stage III left upper lobe adenocarcinoma. HISTORY OF PRESENT ILLNESS Patient is an 82-year-old female who was seen today after undergoing her first cycle of carboplatin and Alimta. She is also receiving daily radiation. She presents today and is very fatigued. She has had some mild anorexia. She relates that she vomited on Sunday (four days after treatment) after eating pizza and drinking wine. This has resolved. She also had some diarrhea, followed by constipation. She did not find her fiber supplement has been helpful. She overall feels very "weak." ONCOLOGY HISTORY Patient is an 82-year-old female who presented in June with tachycardia and atrial fibrillation. CTA of the chest was negative for pulmonary embolism, but a 2.4 cm upper lobe lung mass was noted. PET CT scan on 07/17/18 showed a 3 cm left upper lobe mass with an SUV of 8.5 with left hilar and mediastinal lymph node metastases and possible distal left paratracheal lymph node metastases. MRI of the thoracic spine did not show any evidence of metastasis. MRI of the brain was negative. CT-guided biopsy of the left upper lobe mass on 09/27/18 was positive for a moderately to poorly differentiated, acinar-predominant adenocarcinoma consistent with lung primary. Procedure was complicated with a small pneumothorax which resolved. Began radiation on 10/15/18. Began concurrent carboplatin and Alimta on 10/17/18. PAST MEDICAL HISTORY 1. Allergic rhinitis. 2. Osteoarthritis. 3. COPD. 4. Stage IIIA lung cancer. 5. Atrial fibrillation. SURGICAL HISTORY 1. Appendectomy with lysis of adhesions, September 2008. 2. Tonsillectomy. 3. Total hysterectomy. 4. Bilateral cataract surgery, 2010. FAMILY HISTORY Negative for malignancy or blood disorder. SOCIAL HISTORY Patient is with three grown children. One son is currently living with her. 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 She drinks a cocktail every evening and occasional beer. No use of illicit drugs. MEDICATIONS 1. Aspirin 325 mg daily. 2. Albuterol nebulizer. 3. Albuterol inhaler. 4. Ibuprofen p.r.n. 5. Loratadine 10 mg daily. 6. Prednisone 5 mg daily. 7. Ranitidine 150 mg daily. ALLERGIES SULFA and ARFORMOTEROL. REVIEW OF SYSTEMS A 12-point review of systems is performed and is negative except as stated above. She has lost 3 kg in the past week. PHYSICAL EXAMINATION VITAL SIGNS: Weight 64 kg. BP 122/76, P 96, R 17, temp 97.2, O2 sat 96% on 3L per nasal cannula. GENERAL: Patient is a well-developed, but fatigued-appearing female in no acute distress. HEAD: Normocephalic, atraumatic. EYES: Sclerae anicteric. MOUTH: Dry mucous membranes. No lesions. NECK: Supple. No palpable adenopathy. LUNGS: Diminished bilaterally. CARDIOVASCULAR: Heart rate regular at 92 per minute without murmur, S3, or S4. EXTREMITIES: No edema. NEUROLOGIC: Nonfocal. LABORATORY CBC today reveals WBC of 2.6, ANC of 0.6, hemoglobin 13.1, hematocrit 38.7, platelets 125,000. CMP shows a BUN of 30 and a creatinine of 1.2. IMPRESSION AND PLAN The patient is an 82-year-old female diagnosed with stage IIIA adenocarcinoma of the left upper lung. Began radiation on 10/15/18. Began concurrent carboplatin and Alimta on 10/17/18. 1. Lung cancer. Patient is seen one week after receiving her first cycle of carboplatin and Alimta. She initially tolerated this fairly well, but has had issues since then. 2. Gastrointestinal. Describes vomiting on Sunday (four days after treatment). This was after she ate pizza and drank some wine. We discussed that bland foods may be indicated the week after chemotherapy. Nausea and vomiting have now resolved. Also describes diarrhea, followed by constipation. I recommended she start MiraLAX instead of her fiber supplement. 3. Hydration. BUN and creatinine are elevated at 30 and 1.2 respectively. Mucous membranes are dry. She was hydrated with 1 L of normal saline and felt improved after that. 4. Neutropenia. ANC today is 0.6. We reviewed neutropenia precautions, and she will notify us if she develops fever or signs of infection. 5. Thrombocytopenia, mild. She has no evidence of bruising or bleeding. 6. Follow up in one week for further care. CBC and CMP will be repeated at that time. MTDD
[2018-10-31 11:31] LABS: PLATELET COUNT, AUTOMATED 198 K/uL (150-450)
[2018-10-31 15:55] VITALS: BP 120/80
--- NOTE | 2018-10-31 19:15 | ONCOLOGY FOLLOW UP NOTE ---
EVENT DATE: October 31, 2018 HISTORY OF PRESENT ILLNESS Patient is an 82-year-old female who was seen today in two-week followup after completing her first cycle of carboplatin and Alimta. She is tolerating her daily radiation without issue. She has had no skin problems. When seen last week, she was very fatigued with anorexia and was slightly dehydrated. Today, she presents and overall is "back to normal." She continues on oxygen per nasal cannula. ONCOLOGY HISTORY Patient is an 82-year-old female who presented in June with tachycardia and atrial fibrillation. CTA of the chest was negative for pulmonary embolism, but a 2.4 cm upper lobe lung mass was noted. PET CT scan on 07/17/18 showed a 3 cm left upper lobe mass with an SUV of 8.5 with left hilar and mediastinal lymph node metastases and possible distal left paratracheal lymph node metastases. MRI of the thoracic spine did not show any evidence of metastasis. MRI of the brain was negative. CT-guided biopsy of the left upper lobe mass on 09/27/18 was positive for a moderately to poorly differentiated, acinar-predominant adenocarcinoma consistent with lung primary. Procedure was complicated with a small pneumothorax which resolved. Began radiation on 10/15/18. Began concurrent carboplatin and Alimta on 10/17/18. PAST MEDICAL HISTORY 1. Allergic rhinitis. 2. Osteoarthritis. 3. COPD. 4. Stage IIIA lung cancer. 5. Atrial fibrillation. SURGICAL HISTORY 1. Appendectomy with lysis of adhesions, September 2008. 2. Tonsillectomy. 3. Total hysterectomy. 4. Bilateral cataract surgery, 2010. FAMILY HISTORY Brother with head and neck cancer. SOCIAL HISTORY Patient is with three grown children. One son is currently living with her. 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 She drinks a cocktail every evening and occasional beer. No use of illicit drugs. MEDICATIONS 1. Aspirin 325 mg daily. 2. Albuterol nebulizer. 3. Albuterol inhaler. 4. Ibuprofen p.r.n. 5. Loratadine 10 mg daily. 6. Prednisone 5 mg daily. 7. Ranitidine 150 mg daily. ALLERGIES SULFA and ARFORMOTEROL. REVIEW OF SYSTEMS A 12-point review of systems is performed and is negative except as stated above. PHYSICAL EXAMINATION VITAL SIGNS: Blood pressure 120/76, pulse 66, R 16, temp 97.4, O2 sat 98%. GENERAL: Patient is a well-developed, well-nourished female in no acute distress. HEAD: Normocephalic, atraumatic. EYES: Sclerae anicteric. MOUTH: Dry mucous membranes. No lesions. NECK: Supple. No palpable adenopathy. LUNGS: Slightly diminished, but clear bilaterally. CARDIOVASCULAR: Heart rate regular, 66 per minute, without murmur. EXTREMITIES: No edema. NEUROLOGIC: Nonfocal. LABORATORY CBC today reveals a WBC of 5.3, hemoglobin 10.9, hematocrit 33.0, platelets 198,000. CMP is within normal limits, BUN and creatinine 19 and 0.8 respectively. 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 Began radiation on 10/15/18. Began concurrent carboplatin and Alimta on 10/17/18. PLAN 1. Lung cancer. Patient has now completed her first cycle of carboplatin and Alimta. She initially had some GI issues, but these have now resolved. 2. GI. Patient vomited four days after chemo, but had been eating pizza and drinking a small amount of wine. We reviewed that bland, soft foods may be more appropriate the week after chemo. She is now eating well and denies any issues. She initially had constipation, but this has resolved. She will begin MiraLAX with her next cycle of treatment. 3. Anemia, mild. Hemoglobin has decreased from 13.1 to 10.9. She does have some fatigue, and I recommended she remain as active as possible. 4. Continue daily radiation. 5. Follow up on 11/07/18 for cycle #2 of carboplatin and Alimta. MTDD
[2018-11-07 09:19] VITALS: BP 121/75
[2018-11-07] MEDS: NS(*) 0.9% 500 ML BAG 500 ML IV PRN (09:26)
[2018-11-07] MEDS: PALONOSETRON 0.25 MG/5 ML VIAL IVP PRN (09:51)
[2018-11-07 12:00] VITALS: BP 135/62
--- NOTE | 2018-11-07 21:54 | ONCOLOGY FOLLOW UP NOTE ---
EVENT DATE: November 07, 2018 CHIEF COMPLAINT Followup for lung cancer. HISTORY OF PRESENT ILLNESS The patient is an 82-year-old female who was seen today for consideration of cycle #2 of carboplatin and Alimta. She has tolerated her treatment overall fairly well. She did have some mild nausea four to five days after her first cycle, but this may have been food related. She has been fatigued, although has felt better in the past week. She continues on daily radiation and denies any significant complaints from this. She mentioned having diarrhea yesterday, but believes it was also food related. This is resolving. ONCOLOGY HISTORY Patient is an 82-year-old female who presented in June with tachycardia and atrial fibrillation. CTA of the chest was negative for pulmonary embolism, but a 2.4 cm upper lobe lung mass was noted. PET CT scan on 07/17/18 showed a 3 cm left upper lobe mass with an SUV of 8.5 with left hilar and mediastinal lymph node metastases and possible distal left paratracheal lymph node metastases. MRI of the thoracic spine did not show any evidence of metastasis. MRI of the brain was negative. CT-guided biopsy of the left upper lobe mass on 09/27/18 was positive for a moderately to poorly differentiated, acinar-predominant adenocarcinoma consistent with lung primary. Procedure was complicated with a small pneumothorax which resolved. Began radiation on 10/15/18. Began concurrent carboplatin and Alimta on 10/17/18. PAST MEDICAL HISTORY 1. Allergic rhinitis. 2. Osteoarthritis. 3. COPD. 4. Stage IIIA lung cancer. 5. Atrial fibrillation. SURGICAL HISTORY 1. Appendectomy with lysis of adhesions, September 2008. 2. Tonsillectomy. 3. Total hysterectomy. 4. Bilateral cataract surgery, 2010. FAMILY HISTORY Brother with head and neck cancer. SOCIAL HISTORY Patient is with three grown children. One son is currently living with her. 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 She drinks a cocktail every evening and occasional beer. No use of illicit drugs. MEDICATIONS 1. Aspirin 325 mg daily. 2. Albuterol nebulizer. 3. Albuterol inhaler. 4. Ibuprofen p.r.n. 5. Loratadine 10 mg daily. 6. Prednisone 5 mg daily. 7. Ranitidine 150 mg daily. ALLERGIES SULFA and ARFORMOTEROL. REVIEW OF SYSTEMS A 12-point review of systems is performed and is negative except as stated above. PHYSICAL EXAMINATION VITAL SIGNS: Weight 63.8 kg. BP 121/75, P 80, R 16, temp 98.5, O2 sat 96% on 2L per nasal cannula. GENERAL: Patient is a well-developed, well-nourished female in no acute distress. HEAD: Normocephalic, atraumatic. EYES: Sclerae anicteric. MOUTH: Dry mucous membranes. No lesions noted. NECK: Supple. No palpable adenopathy. LUNGS: Diminished bilaterally. No wheezing noted. CARDIOVASCULAR: Heart rate regular, 80 per minute, without murmur, S3, or S4. ABDOMEN: Soft, nontender, with hyperactive bowel sounds. No organomegaly. EXTREMITIES: No edema. NEUROLOGIC: Nonfocal. LABORATORY CBC today reveals a WBC of 10.6, ANC of 9.4, hemoglobin 11.6, hematocrit 34.3, platelets 365,000. CMP is within normal limits except for a random glucose of 148. 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 Began radiation on 10/15/18. Began concurrent carboplatin and Alimta on 10/17/18. PLAN 1. Lung cancer. Cycle #2 of carboplatin and Alimta. She tolerated her first treatment well. 2. GI. Mild diarrhea yesterday, slowly resolving. She had nausea four days after her first treatment, and we spent some time discussing the idea of eating bland or softer foods. She has had recent diarrhea, but feels it is resolving. She can use Imodium if needed. 3. Anemia, mild. Hemoglobin decreased from an initial of 13.1 to 10.9, but has now recovered to 11.6. 4. Continue daily radiation. 5. Follow up in one week. CBC and CMP will be repeated at that time. MTDD
[2018-11-14 11:21] VITALS: BP 88/55
[2018-11-14 11:39] LABS: PLATELET COUNT, AUTOMATED 191 K/uL (150-450)
[2018-11-14 12:41] VITALS: BP 117/64
[2018-11-15 11:23] VITALS: BP 132/70
[2018-11-15 13:02] VITALS: BP 119/64
--- NOTE | 2018-11-15 14:21 | ONCOLOGY FOLLOW UP NOTE ---
EVENT DATE: November 15, 2018 CHIEF COMPLAINT Followup for lung cancer. HISTORY OF PRESENT ILLNESS Patient is an 82-year-old female who was seen today in followup. She is overwhelmingly weak. She required IV hydration yesterday as she was hypotensive and tachycardic. Symptoms improved, but today she again feels weak. She also has had some issues with nausea and increased GERD symptoms, but is not taking her ranitidine regularly. She is somewhat overwhelmed by how poorly she feels. ONCOLOGY HISTORY Patient is an 82-year-old female who presented in June with tachycardia and atrial fibrillation. CTA of the chest was negative for pulmonary embolism, but a 2.4 cm upper lobe lung mass was noted. PET CT scan on 07/17/18 showed a 3 cm left upper lobe mass with an SUV of 8.5 with left hilar and mediastinal lymph node metastases and possible distal left paratracheal lymph node metastases. MRI of the thoracic spine did not show any evidence of metastasis. MRI of the brain was negative. CT-guided biopsy of the left upper lobe mass on 09/27/18 was positive for a moderately to poorly differentiated, acinar-predominant adenocarcinoma consistent with lung primary. Procedure was complicated with a small pneumothorax which resolved. Began radiation on 10/15/18. Began concurrent carboplatin and Alimta on 10/17/18. PAST MEDICAL HISTORY 1. Allergic rhinitis. 2. Osteoarthritis. 3. COPD. 4. Stage IIIA lung cancer. 5. Atrial fibrillation. SURGICAL HISTORY 1. Appendectomy with lysis of adhesions, September 2008. 2. Tonsillectomy. 3. Total hysterectomy. 4. Bilateral cataract surgery, 2010. FAMILY HISTORY Brother with head and neck cancer. SOCIAL HISTORY Patient is with three grown children. One son is currently living with her. 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 She drinks a cocktail every evening and occasional beer. No use of illicit drugs. MEDICATIONS 1. Aspirin 325 mg daily. 2. Albuterol nebulizer. 3. Albuterol inhaler. 4. Ibuprofen p.r.n. 5. Loratadine 10 mg daily. 6. Prednisone 5 mg daily. 7. Ranitidine 150 mg daily. ALLERGIES SULFA and ARFORMOTEROL. REVIEW OF SYSTEMS A 12-point review of systems is performed and is negative except as stated above. PHYSICAL EXAMINATION VITAL SIGNS: Blood pressure 132/70, pulse 96, respirations 16, temp 99, O2 sat 99% at 3L. GENERAL: Patient is a well-developed, but fatigued-appearing female in no acute distress. HEAD: Normocephalic, atraumatic. EYES: Sclerae anicteric. MOUTH: Slightly dry mucous membranes. No lesions. NECK: Supple. No palpable adenopathy. LUNGS: Diminished throughout. CARDIOVASCULAR: Heart rate regular, 96 per minute, without murmur, S3, or S4. EXTREMITIES: No edema. NEUROLOGIC: Nonfocal. LABORATORY CBC on 11/14/18 showed a WBC of 2.6, ANC of 0.7, hemoglobin 11.9, hematocrit 35.8, platelets 191,000. CMP was within normal limits except for a slightly elevated BUN of 23. 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 Began radiation on 10/15/18. Began concurrent carboplatin and Alimta on 10/17/18. PLAN 1. Lung cancer. Patient is seen one week after receiving her second cycle of carboplatin and Alimta. She has noted more side effects with this treatment. 2. GI. Describes some nausea as well as GERD symptoms. She was not taking her ranitidine regularly, but states that this has worked well for her in the past. I recommended she take ranitidine 150 mg daily. We can consider a proton pump inhibitor if needed. 3. Neutropenia. ANC today is 0.7. We reviewed neutropenia precautions, and she will notify us if she develops fever or signs of infection. 4. Continue daily radiation. 5. Follow up in one week for continued care. CBC and CMP will be repeated at that visit. MTDD
[2018-11-21 11:29] VITALS: BP 131/74
[2018-11-21 11:42] LABS: PLATELET COUNT, AUTOMATED 91 K/uL (150-450)
--- NOTE | 2018-11-22 10:38 | ONCOLOGY FOLLOW UP NOTE ---
EVENT DATE: November 21, 2018 CHIEF COMPLAINT Followup for lung cancer. HISTORY OF PRESENT ILLNESS Patient is an 82-year-old female who was seen today in followup. She has received two cycles thus far with carboplatin/Alimta. She reported noticing increased side effects after her second cycle. At that time, she reported overwhelming weakness and was also hypotensive and tachycardic, requiring IV fluid hydration. Symptoms improved after her fluids, although she reports that this took longer than after her first cycle. She also had some issues of nausea and increased GERD symptoms but was not taking her ranitidine regularly. She remains on ranitidine 150 mg daily and currently has no complaints. We may consider proton pump inhibitors in the future if needed. She was also found to be mildly neutropenic, grade 1/2, with an ANC of 0.7 on November 15, 2018. She remained on daily radiotherapy and is followed by Dr. Garcia. She remains on O2 via nasal cannula, currently at 3L. She is accompanied in the office by her son. ONCOLOGY HISTORY Patient is an 82-year-old female who presented in June with tachycardia and atrial fibrillation. CTA of the chest was negative for pulmonary embolism, but a 2.4 cm upper lobe lung mass was noted. PET CT scan on July 17, 2018, showed a 3 cm left upper lobe mass with an SUV of 8.5 with left hilar and mediastinal lymph node metastases and possible distal left paratracheal lymph node metastases. MRI of the thoracic spine did not show any evidence of metastasis. MRI of the brain was negative. CT-guided biopsy of the left upper lobe mass on September 27, 2018, was positive for a moderately to poorly differentiated, acinar-predominant adenocarcinoma consistent with lung primary. Procedure was complicated with a small pneumothorax which resolved. Began radiation on October 15, 2018. Began concurrent carboplatin and Alimta on October 17, 2018. PAST MEDICAL HISTORY 1. Allergic rhinitis. 2. Osteoarthritis. 3. COPD. 4. Stage IIIA lung cancer. 5. Atrial fibrillation. SURGICAL HISTORY 1. Appendectomy with lysis of adhesions, September 2008. 2. Tonsillectomy. 3. Total hysterectomy. 4. Bilateral cataract surgery, 2010. FAMILY HISTORY Brother with head and neck cancer. SOCIAL HISTORY Patient is with three grown children. One son is currently living with her. 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 She drinks a cocktail every evening and occasional beer. No use of illicit drugs. MEDICATIONS 1. Aspirin 325 mg daily. 2. Albuterol nebulizer. 3. Albuterol inhaler. 4. Ibuprofen p.r.n. 5. Loratadine 10 mg daily. 6. Prednisone 5 mg daily. 7. Ranitidine 150 mg daily. ALLERGIES SULFA and ARFORMOTEROL. REVIEW OF SYSTEMS A 12-point review of systems is performed and is negative except as stated above. She reports that her fatigue has improved. PHYSICAL EXAMINATION VITAL SIGNS: Weight per chart. Temperature 97.4 degrees F, BP 131/71, P 74, R 16, oxygen saturation 92% via O2 3L nasal cannula. GENERAL: Patient is a well-developed but fatigued-appearing female in no acute distress. HEAD: Normocephalic, atraumatic. EYES: Sclerae anicteric. MOUTH: Slightly dry mucous membranes. No lesions. NECK: Supple. No palpable adenopathy. LUNGS: Diminished breath sounds to auscultation bilaterally. No significant change compared to prior examinations. Currently on O2 via nasal cannula. CARDIOVASCULAR: Heart rate regular with normal rhythm. No murmur or ectopy. EXTREMITIES: No edema. NEUROLOGIC: Nonfocal. Patient is alert and oriented x3. PSYCH: Mood and affect are within normal limits. Patient is in obvious good spirits today. LABORATORY CBC today: WBC 3.2, ANC 1.7, Hemoglobin 10.0, Hematocrit 29.5%, Platelets 91,000. Red blood cell indices reveal a normocytic and normochromic anemia with MCV and MCH within normal limits. CMP today: Sodium 133, normal. Potassium 3.8, normal. SCr 0.70, normal. 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 She began radiotherapy on October 15, 2018. She began concurrent chemotherapy with carboplatin and Alimta on October 17, 2018. She has received two cycles thus far. She reports feeling better today. PLAN 1. Lung cancer: Patient was seen today for followup and she is two weeks out post cycle #2 of carbo/Alimta. She is much improved, is feeling well and blood counts show improvement with an ANC up to 1.7 today. 2. Normocytic anemia: mild stable normocytic, normochromic anemia with a hemoglobin of 10 and hematocrit of 29.5%. Likely related to chemotherapy. I have ordered iron panel to be drawn at her follow-up visit next week with cycle #3. For now, this is stable. 3. GI: Patient remains on daily ranitidine 150 mg. Her GERD symptoms are controlled at this time. We may consider proton pump inhibitor in the future if this worsens. 4. Neutropenia: Greatly improved with ANC of 1.7 today. She is aware to notify us if she develops any signs or symptoms of infection to include temperature of 100.5 degrees Fahrenheit or greater. 5. Patient will continue with daily radiotherapy as per RAD/ONC. 6. Patient will return to clinic in one week for scheduled followup visit with me and should be proceeding with cycle #3 with carbo/Alimta at that time. She will also have CBC, CMP and iron panel at that visit. MTDD
[2018-11-28 09:45] VITALS: BP 141/89
[2018-11-28] MEDS: PALONOSETRON 0.25 MG/5 ML VIAL IVP PRN (10:09)
[2018-11-28] MEDS: NS(*) 0.9% 500 ML BAG 500 ML IV PRN (10:09)
[2018-11-28 12:32] VITALS: BP 112/62
--- NOTE | 2018-11-28 14:27 | ONCOLOGY FOLLOW UP NOTE ---
EVENT DATE: November 28, 2018 CHIEF COMPLAINT Followup for lung cancer, due for Cycle #3 carbo/Alimta today. HISTORY OF PRESENT ILLNESS Patient is an 82-year-old female who was seen today in followup. She has completed two cycles thus far with carboplatin/Alimta every 21 days. She is due for Cycle #3 today. She did report increased side effects after her second cycle, to include overwhelming weakness as well as hypotension and tachycardia. This required IV fluid hydration in our office. Symptoms improved after hydration, although she reports that this took longer than after her first cycle. She has also had some mild nausea and increased GERD symptoms but now is taking ranitidine daily and regularly. She remains on ranitidine 150 mg daily. Currently, she denies any nausea or GERD type symptoms. We may switch her over to a proton pump inhibitor in the future if needed. She was also found to be mildly neutropenic, grade 1/2 with an ANC of 0.7 on November 15, 2018. She remains on daily radiotherapy and is followed by Dr. Garcia. She saw Dr. Garcia for followup last week. She remains on O2 via nasal cannula, currently at 3L. She reports good compliance with her oxygen. She is accompanied in the office today by her son. She reports feeling quite well, and has been eating and drinking well. She likes grilled cheese sandwiches and cookies and eats these regularly. Of note, the patient mentioned a week or two ago that she was having some worsening vision. We did inform her that the pre-medication with dexamethasone can increase inflammation of the lens of the eye and, therefore, we recommend that patient avoid new prescription glasses or contacts as this may revert back to normal once off chemotherapy and related corticosteroids. She is only daily prednisone, low dose, 5 mg daily for her history of arthritis. Charu tells me that she saw an college specialist earlier this week and was placed on prednisone eye drops. She reports that she does have a history of glaucoma and reports that her glaucoma does worsen as steroids increase pressure in her eyes. She is due to follow up with the college specialist next Sunday. Per patient's account, she was told that she did have some inflammation in the eyes bilaterally. We don't have any records yet from her college specialist. ONCOLOGY HISTORY Patient is an 82-year-old female who presented in June with tachycardia and atrial fibrillation. CTA of the chest was negative for pulmonary embolism, but a 2.4 cm upper lobe lung mass was noted. PET CT scan on July 17, 2018, showed a 3 cm left upper lobe mass with an SUV of 8.5 with left hilar and mediastinal lymph node metastases and possible distal left paratracheal lymph node metastases. MRI of the thoracic spine did not show any evidence of metastasis. MRI of the brain was negative. CT-guided biopsy of the left upper lobe mass on September 27, 2018, was positive for a moderately to poorly differentiated, acinar-predominant adenocarcinoma consistent with lung primary. Procedure was complicated with a small pneumothorax which resolved. Began radiation on October 15, 2018. Began concurrent carboplatin and Alimta on October 17, 2018. PAST MEDICAL HISTORY 1. Allergic rhinitis. 2. Osteoarthritis. 3. COPD. 4. Stage IIIA lung cancer. 5. Atrial fibrillation. 6. Glaucoma. SURGICAL HISTORY 1. Appendectomy with lysis of adhesions, September 2008. 2. Tonsillectomy. 3. Total hysterectomy. 4. Bilateral cataract surgery, 2010. FAMILY HISTORY Brother with head and neck cancer. SOCIAL HISTORY Patient is with three grown children. One son is currently living with her. 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 She drinks a cocktail every evening and occasional beer. No use of illicit drugs. MEDICATIONS 1. Aspirin 325 mg daily. 2. Albuterol nebulizer. 3. Albuterol inhaler. 4. Ibuprofen p.r.n. 5. Loratadine 10 mg daily. 6. Prednisone 5 mg daily. 7. Ranitidine 150 mg daily. 8. Dexamethasone 4 mg tablets one b.i.d. day before, of and after chemo. 9. Prednisolone ophthalmic solution. ALLERGIES SULFA and ARFORMOTEROL. REVIEW OF SYSTEMS A 12-point review of systems is performed and is negative except as stated below. She reports that her fatigue has improved. Patient continues to notice altered vision and tells me that she has not yet noticed any improvement since starting prednisone drops. She just started these a few days, however. GI: Patient reports that she is eating and drinking well and denies any nausea, vomiting or GERD symptoms. She reports good daily compliance with ranitidine. She reports occasional abdominal cramping sensations which began about two to three days post chemotherapy and then spontaneously resolved. These are at baseline and are unrelated to bowels. MUSCULOSKELETAL: Patient tells me she has a history of arthritis and as a result has been on low dose daily prednisone 5 mg. She tells me that at times she noticed arthritic type pain in her knees and then this can move to her hands, even her hip. Today, she reports that she is noticing pain in her right hip but tells me that this is her normal arthritic pain. She found some old Lidoderm patches that a prior wagon drill operator had prescribed and she is wondering if she can use these or have a new prescription. No other new areas of pain. PHYSICAL EXAMINATION VITAL SIGNS: Weight 63.0 kg, stable compared to 62.8 kg on November 07, 2018, T 98.2 degrees F, BP 141/89, P 96, R 16, oxygen saturation 96% on 3L nasal cannula. GENERAL: Patient is a well-developed but fatigued-appearing female in no acute distress. HEAD: Normocephalic, atraumatic. EYES: Sclerae anicteric. MOUTH: Slightly dry mucous membranes. No lesions. NECK: Supple. No palpable adenopathy. No JVD. LUNGS: Diminished breath sounds to auscultation bilaterally. No significant change compared to prior examinations. Currently on O2 via nasal cannula. CARDIOVASCULAR: Heart rate regular with normal rhythm. No murmur or ectopy. EXTREMITIES: No edema. No clubbing, no cyanosis. NEUROLOGIC: Nonfocal. Patient is alert and oriented x3. PSYCH: Mood and affect are within normal limits. Patient is in obvious good spirits today. MUSCULOSKELETAL: No pain to palpation of the bony spinous processes. LABORATORY CBC today: WBC 7.1, ANC 6.2, hemoglobin 10.7, hematocrit 31.75%, platelets 287,000. CMP today: Sodium normal at 143, potassium normal at 4.2, serum creatinine 0.70, glucose somewhat elevated at 139, largely stable compared to last glucose. LFTs within normal limits today. IMPRESSION AND PLAN The patient is an 82-year-old female diagnosed with stage IIIA adenocarcinoma of the left upper lung. She began radiotherapy on October 15, 2018. She began concurrent chemotherapy therapy with carboplatin and Alimta on October 17, 2018. She has completed two cycles thus far and is due for her third cycle today. Overall, she reports feeling well and looks good today. Vital signs are in great range today. She has seen an college specialist as noted above. She is having some noticeable arthritic pain in her right hip but tells me that this is intermittent. She is interested in re-starting Lidoderm patches p.r.n. 1. Lung cancer: Patient will proceed with Cycle #3 of carbo/Alimta today. She is much improved, is feeling well and blood counts are in great range. ANC is even better today and completely normal at 6,200. 2. Normocytic anemia: Red blood indices are normal and hemoglobin is slightly improved today. This is likely related to chemotherapy effect. I will hold off on iron panel today as her H and H have improved. We can check this at next visit if needed. For now, this is stable. 3. GI: Patient is to remain on daily ranitidine 150 mg. 4. Patient will continue with daily radiotherapy as per RAD/ONC. 5. Arthritis pain: I have provided the patient with a written prescription for Lidoderm patches 700 mg 5% to apply up to 12 hours maximum in a 24-hour period, #10, no refills. She does have a few patches at home, although these back in 2010. She may try and use one to see if this is effective but, again, she did receive a handwritten prescription for this today. She is not interested in any other pain medication at this time. She feels this will be managed well with Lidoderm topically. She's also on daily low-dose prednisone, 5 mg, and RAD/ONC did tell her she could potentially increase to 10 mg daily for her cough and general aches. I've told her that she may increase this and asked her to inform us at next visit. 6. Patient will continue to come in weekly for labs. 7. Patient will return to the clinic in one week for followup with me for toxicity check as patient has had a decline in performance status in the one week following chemotherapy. 8. Patient will return to clinic in three weeks for followup with physician. ADRIANNE
[2018-12-13 11:01] VITALS: BP 127/73
[2018-12-13 11:15] LABS: PLATELET COUNT, AUTOMATED 72 K/uL (150-450)
[2018-12-19 09:06] VITALS: BP 138/83
[2018-12-19] MEDS: PALONOSETRON 0.25 MG/5 ML VIAL IVP PRN (10:23)
[2018-12-19] MEDS: NS(*) 0.9% 500 ML BAG 500 ML IV PRN (11:05)
--- NOTE | 2018-12-19 21:04 | [facility] ONCOLOGY NOTE ---
EVENT DATE: December 19, 2018 DIAGNOSIS Left upper lobe adenocarcinoma, 3 cm. CHIEF COMPLAINT Patient is here today for followup of her left upper lobe lung cancer with adenocarcinoma. ONCOLOGY HISTORY Patient is an 83-year-old female who presented with tachycardia with atrial fibrillation, and the patient had a CTA chest done on the June, which came back negative for pulmonary embolism, but a 2.4 cm left upper lobe lung mass was noted. So, the patient had a PET/CT scan done on the June, which showed a 3 cm left upper lobe mass with SUV 8.5, with left hilar/AP window/mediastinal lymph node metastases with possible distal left paratracheal lymph node metastasis. There was nonspecific uptake at T10 vertebral body with SUV 4.4, but without definitive CT correlate. MRI thoracic spine done on the June did not show any evidence of metastasis in the thoracic spine. Brain MRI done on the June was without any evidence of metastasis. CT-guided biopsy of the left upper lobe mass done on the September came back positive for moderately to poorly differentiated acinar-predominant adenocarcinoma, consistent with lung primary. Her procedure was complicated with a small pneumothorax, which resolved. Her stage is stage IIIA, given that she has mediastinal adenopathy on the same side of the lung mass. Patient received chemoradiation with carboplatin and Alimta. She started radiation therapy on the September, and she started the carboplatin and Alimta on the September. Patient received her fourth cycle of chemotherapy with carboplatin and Alimta on the November. HISTORY OF PRESENT ILLNESS Patient is here today for her fourth cycle of carboplatin and Alimta for her adenocarcinoma of the left lung. She is doing fine currently. She has epistaxis on blowing her nose. She has cough with expectoration. She has alternating diarrhea and constipation and occasional abdominal cramps. She is weak and tired, but generally speaking, really she is tolerating treatment very well so far. PAST MEDICAL HISTORY 1. Allergic rhinitis. 2. Osteoarthritis. 3. COPD. 4. Left upper lobe lung mass. PAST SURGICAL HISTORY 1. Appendectomy in September 2008. 2. Tonsillectomy. 3. Total hysterectomy. 4. Bilateral cataract surgery in 2010. FAMILY HISTORY Negative for cancer or blood diseases. 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 She drinks a cocktail every evening and occasional beer. No abuse of illicit drugs. CURRENT MEDICATIONS 1. Eliquis 5 mg twice daily. 2. Prednisone 5 mg daily. 3. Oxygen 3L per minute. 4. Albuterol nebulizer p.r.n. 5. Tylenol PM p.r.n. ALLERGIES: No known drug allergies. REVIEW OF SYSTEMS CONSTITUTIONAL: No appetite or weight change. No fever, chills, or sweating. No recent infection. HEENT: Ears: No tinnitus or hearing problem. Nose: She has epistaxis on blowing the nose. Throat: No sore throat or mouth ulcers. Eyes: No diplopia or visual changes. RESPIRATORY: No shortness of breath. She has cough with expectoration. No hemoptysis. CARDIOVASCULAR: No chest pain, orthopnea, or paroxysmal nocturnal dyspnea (PND). No edema. No palpitations. GASTROINTESTINAL: No nausea or vomiting. She has alternating diarrhea and constipation and occasional abdominal cramps. No change in bowel movements. No heartburn or swallowing difficulties. No jaundice. No hematemesis, melena, or rectal bleeding. GENITOURINARY: No hematuria or dysuria. MUSCULOSKELETAL: No pain in the muscles, joints, or bones. NEUROLOGICAL: No tingling or numbness in the hands or feet. No headaches or convulsions. HEMATOLOGIC/LYMPHATIC: No bleeding or easy bruising. She is weak, tired, and fatigued. No enlarged lymph nodes. SKIN: No skin rash or lumps. PSYCHIATRIC: No anxiety or depression. PHYSICAL EXAMINATION GENERAL: Looks stable. Well developed, well nourished, and in no acute distress. VITAL SIGNS: Blood pressure 138/83, pulse 98 per minute, respirations 18 per minute, temperature 98.1, pulse ox 92% on 3L oxygen. HEENT: Head: Atraumatic. No sinus tenderness to palpation. Eyes: No icterus or conjunctivitis. Mouth and Throat: No oral thrush or mucositis. NECK: Supple. No cervical or supraclavicular lymphadenopathy. LUNGS: Clear to auscultation and percussion bilaterally. HEART: Regular rate and rhythm. No gallops, murmurs, clicks, or rubs. ABDOMEN: Soft and lax. No tenderness. No hepatosplenomegaly. No masses. EXTREMITIES: No cyanosis, clubbing, or edema. LYMPHATICS: No peripheral lymphadenopathy. NEUROLOGICAL: Conscious, alert, and oriented times three. No focal motor or sensory deficits. PSYCHIATRIC: Mood and affect appear normal. SKIN: No skin rash, bruise, or purpuric eruption. DIAGNOSTIC DATA CBC showed white count 5.5, hemoglobin 8.9, hematocrit 26.4, platelets 178,000. Chem panel is totally normal except BUN 21, blood sugar 149. Other parameters are normal. ASSESSMENT 1. Stage IIIA left upper lobe lung adenocarcinoma, 3 cm by PET scan done on the June, with SUV 8.5, with left hilar/aortopulmonary window/mediastinal lymph node metastases and possible lymph node metastasis in the distal left paratracheal lymph node, with nonspecific uptake at T10 vertebral body with SUV of 4.4, but without CT correlate. MRI of the thoracic spine did not reveal any evidence of metastasis. CT-guided biopsy of the left upper lobe mass done on the September came back positive for moderately to poorly differentiated acinar-predominant adenocarcinoma consistent with lung primary. Given this information, patient's tumor was staged as stage IIIA adenocarcinoma of the left upper lobe of the left lung. Patient started concurrent chemoradiation. She started radiation therapy on the September, and she started chemotherapy with carboplatin and Alimta on the September. Patient is due today for her fourth cycle of chemotherapy, and I am planning to see her in a month from now to start her immune therapy with durvalumab for a total of one year. She is doing very well with her treatment, and she is doing fine currently. 2. Chemotherapy-induced anemia. Current hemoglobin is 8.9. I will consider blood transfusion if the hemoglobin is less than 7 g/dL. PLAN 1. Continue B12 and folic acid supplement. 2. Carboplatin/Alimta cycle #4 today. 3. CBC, chem panel to be checked weekly. 4. Patient to return in four weeks to start treatment with durvalumab. 5. Patient to contact us for any new concern or complaints. MTDD
[2018-12-26 11:58] VITALS: BP 133/61
[2018-12-26 12:24] LABS: PLATELET COUNT, AUTOMATED 196 K/uL (150-450)
--- NOTE | 2018-12-26 14:52 | Oncology Note ---
Pt was in clinic today for routine labs, s/p last cycle of carbo/alimta on 12/19/18. Plan is for pt to begin 1 year of durvalumab 4 weeks POST completion of XRT. Discussed that optimally it would be best to continue XRT and finish as she only has 4 fractions left. She apparently mentioned that she wanted to postpone while in for xrt today. She tells me that she wants to continue, she simply had worsening heartburn and cough yesterday. She does admit that she hasn't been taking her GERD Rxs, nor her cough syrup which she states does help her cough. She's back down to 5 mg daily prednisone, and I've instructed her to increase this to 10 mg daily. She incidentally reports that Dr. Garcia told her to increase her prednisone as well, to 2 tablets or 10 mg daily. She will start using her cough syrup. She will try to work on her nutrition and will cut out spicy foods and pizza, since this aggravates her GERD and cough. After she left clinic today, labs revealed ANC of 500. She's 1 week post chemot herapy. We gave neutropenic precautions. She should hopefully be reaching her giorgi and start to come back up. We will re-check her CBC next week. If she's still neutropenic will plan to provide growth-factor support at that time. Discussed her case today with Dr. Langston. JORDAN Linda APRN,ELECTRICAL INSPECTOR Dec 26, 2018 14:52
[2019-01-01] VITALS (7 sets, daily range): BP systolic 100–151; BP diastolic 60–87
[~2019-01-01] VITALS: Ht 150.5 cm; Wt 63.8 kg
[~2019-01-01 11:29] MED LIST changes: +ALTEPLASE RECOMB 2 MG VIAL IVP PRN; +CARBOPLATIN IVPB ONE; +CYANOCOBALAMIN 1000MCG/ML VIAL IM ONLY ONE; +DEXAMETHASONE SOD PHOS 10MG/ML IVP ONE; +DEXTROSE 5%(*) 100 ML BAG 100 ML IVPB PRN; +NS 0.9% IVPB ONE; +NS(*) 0.9% 100 ML BAG 100 ML IVPB PRN; +NS(*) 0.9% 1000 ML BAG 1,000 ML IV ONE; +OMEP-125 PO; -OMEP-126 PO; +PEMETREXED DISOD IVPB ONE; +RANI-366 PO; -RANI-54 PO; +WATER FOR INJ,STERILE 20 ML IVP PRN; +[UNRECOGNIZED DRUG - OTHER] IVPB ONE
[2019-01-01 11:55] LABS: PLATELET COUNT, AUTOMATED 58 K/uL (150-450)
[2019-01-01] MEDS ORDERED: ACETAMINOPHEN 325 MG TAB PO ONE (15:50)
[2019-01-01] MEDS ORDERED: diphenhydrAMINE 25 MG CAP PO ONE (15:50)
[2019-01-01] MEDS ORDERED: FUROSEMIDE 20 MG/2 ML VIAL IVP PRN (16:55)
[2019-01-08 11:20] VITALS: BP 109/81
[2019-01-08 11:24] LABS: PLATELET COUNT, AUTOMATED 170 K/uL (150-450)
== END 2019-01-14 ==
LOC: SPU 11:29
PROVIDERS: ATTEND Internal Medicine Hematology
DX: Z51.11 Encounter for antineoplastic chemotherapy (principal); C34.12 Malignant neoplasm of upper lobe, left bronchus or lung; C77.8 Secondary and unspecified malignant neoplasm of lymph nodes of multiple regions; Z87.891 Personal history of nicotine dependence; R05 Cough; Z99.81 Dependence on supplemental oxygen; Z79.899 Other long term (current) drug therapy; R19.7 Diarrhea, unspecified; D64.9 Anemia, unspecified
CPT/HCPCS: 36573; 36592; 82728; 83540; 83550; 85025; 85027; 86850; 86900; 86901; 86920; 96360; 96367; 96375; 96411; 96413; 96417; A9270; C1751; G0463; J1100; J1940; J2469; J3420; J7030; J7040; J7050; J9045; J9305; P9016; Q0163; 36430; 77412; 82040; 82247; 82310; 82374; 82435; 82565; 82947; 84075; 84132; 84155; 84295; 84450; 84460; 84520; 99212

== ENCOUNTER → 2019-02-04 | Outpatient (CLI) | payer MEDICARE, MEDICAID ==
[~2019-02-04] MED LIST changes: -ALTEPLASE RECOMB 2 MG VIAL IVP PRN; -CARBOPLATIN IVPB ONE; -CYANOCOBALAMIN 1000MCG/ML VIAL IM ONLY ONE; -DEXAMETHASONE SOD PHOS 10MG/ML IVP ONE; -DEXTROSE 5%(*) 100 ML BAG 100 ML IVPB PRN; +FLUT1BLS5 IN; +HYDR-385 PO; +METO25TA23 PO; -NS 0.9% IVPB ONE; -NS(*) 0.9% 100 ML BAG 100 ML IVPB PRN; -NS(*) 0.9% 1000 ML BAG 1,000 ML IV ONE; +PANT40TA65 PO; -PEMETREXED DISOD IVPB ONE; -WATER FOR INJ,STERILE 20 ML IVP PRN; -[UNRECOGNIZED DRUG - OTHER] IVPB ONE
--- NOTE | 2019-02-05 10:57 | EKG ---
FACILITY: [facility] PATIENT NAME: LASHAUN RODRIGUEZ : [id number] MR: [id number] V: [id number] EXAM DATE: ORDERING PHYSICIAN: FLORES RENDON TECHNOLOGIST: PERFECTO Test Reason : AFIB Blood Pressure : / mmHG Vent. Rate : 135 BPM Atrial Rate : 374 BPM P-R Int : 000 ms QRS Dur : 068 ms QT Int : 286 ms P-R-T Axes : 000 024 -04 degrees QTc Int : 429 ms Atrial flutter with variable AV block Nonspecific ST abnormality Abnormal ECG Confirmed by FLORES RENDON ([id number]) on 02/05/2019 12:33:59 PM Referred By: Confirmed By:FLORES RENDON
== END ==
LOC: RESP 14:44
PROVIDERS: ATTEND Internal Medicine
DX: Z02.9 Encounter for administrative examinations, unspecified (principal)

== ENCOUNTER 2019-04-10 14:00 | Outpatient (RCR) | payer MEDICARE, MEDICAID ==
[2019-01-15 12:09] VITALS: BP 151/74
[2019-01-15 12:13] LABS: PLATELET COUNT, AUTOMATED 237 K/uL (150-450)
[2019-01-22 11:56] LABS: PLATELET COUNT, AUTOMATED 211 K/uL (150-450)
[2019-01-22 12:09] VITALS: BP 113/97
[2019-01-28 11:07] VITALS: BP 110/63
--- NOTE | 2019-01-28 13:39 | RADIOLOGY IMAGING REPORT ---
FAC[place] [facility] [place] NAME: Charu Bañuelos : 1935 MR: [id number] V: [id number] EXAM DATE: ORDERING PHYSICIAN: JORDAN NOLAN TECHNOLOGIST: Location: [facility] Patient: Charu Bañuelos : 1935 Visit/Account:[id number] Date of Sevice: 01/28/2019 CHEST PA LAT INDICATION: History of lung cancer, worsening cough COMPARISON: CT 11/04/2018 FINDINGS: Heart size within normal limits. Left-sided PICC line terminates within the superior vena cava. There is no focal infiltrate or lobar consolidation. There is no pneumothorax or pleural effusion. IMPRESSION: 1. No acute cardiopulmonary process. Report Dictated By: Rodney Vee at 01/28/2019 1:26 PM Report E-Signed By: Rodney Vee at 01/28/2019 1:28 PM WSN:[id number]
--- NOTE | 2019-01-28 14:14 | Oncology Note ---
I called Quita this afternoon at 2:10 PM to inform her of normal chest x-ray result from today. No change in treatment plan, she'll take increased dose of Prednisone X 1 week then drop back down to her daily dose, per our F/U visit discussion. She will use her OTC cough syrup. She will come in on to start C# 1 with durvalumab (Imfinzi). JORDAN Linda APRN,LOOP TACKER January 28, 2019 14:14
--- NOTE | 2019-01-29 05:25 | ONCOLOGY CHEMO TEACHING ---
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 The patient is seen today for chemotherapy/immunotherapy teaching. A total of 60 minutes was spent with Mrs. Bañuelos, 100% of which was [id number] counseling. ONCOLOGY HISTORY Patient is an 82-year-old female who presented in June with tachycardia and atrial fibrillation. CTA of the chest was negative for pulmonary embolism, but a 2.4 cm upper lobe lung mass was noted. PET CT scan on July 17, 2018, showed a 3 cm left upper lobe mass with an SUV of 8.5 with left hilar and mediastinal lymph node metastases and possible distal left paratracheal lymph node metastases. MRI of the thoracic spine did not show any evidence of metastasis. MRI of the brain was negative. CT-guided biopsy of the left upper lobe mass on September 27, 2018, was positive for a moderately to poorly differentiated, acinar-predominant adenocarcinoma consistent with lung primary. Procedure was complicated with a small pneumothorax which resolved. Began radiation on October 15, 2018. Began concurrent carboplatin and Alimta on October 17, 2018. Patient is scheduled to initiate durvalumab later this week. HISTORY OF PRESENT ILLNESS Patient is here today for immunotherapy teaching session, as she is scheduled to initiate Cycle #1 of durvalumab (Imfinzi). She received four cycles of carbo/Alimta, with her last cycle given on 12/19/18. She has now completed radiotherapy. She has had a cough throughout treatment, which has waxed and waned. Today, she tells me that her cough has been a bit worse over the last few days. She admits that she is not taking her cough syrup as often as she can, and last took this about two days ago. She remains on daily low-dose prednisone 5 mg for her osteoarthritis. She does have a productive cough with some white-colored sputum, but no hemoptysis. She reports generalized weakness and fatigue, but overall she has improved since completing chemoradiation. She does have occasional alternating between diarrhea and constipation. She is reporting some left anterior rib pain, which began a couple days ago when her cough worsened. Patient recently had a followup with her PCP, Dr. Amos. She just barely initiated Eliquis last for the first time. Of note, this has been on her medication list, and this was prescribed a while back per her PCP; however, she never started this secondary to cost-related to Eliquis. She now has Medicare Part D and is able to afford this, and so she just started this last week after a followup with Dr. Amos. PAST MEDICAL HISTORY 1. Allergic rhinitis. 2. Osteoarthritis. 3. COPD. 4. Stage IIIA lung cancer. 5. Atrial fibrillation. 6. Glaucoma. SURGICAL HISTORY 1. Appendectomy with lysis of adhesions, September 2008. 2. Tonsillectomy. 3. Total hysterectomy. 4. Bilateral cataract surgery, 2010. FAMILY HISTORY Brother with head and neck cancer. SOCIAL HISTORY Patient is with three grown children. One son is currently living with her. 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 She drinks a cocktail every evening and occasional beer. No use of illicit drugs. MEDICATIONS 1. Aspirin 325 mg daily. 2. Albuterol nebulizer. 3. Albuterol inhaler. 4. Ibuprofen p.r.n. 5. Loratadine 10 mg daily. 6. Prednisone 5 mg daily. 7. Ranitidine 150 mg daily. 8. Dexamethasone 4 mg tablets one b.i.d. day before, of and after chemo. 9. Prednisolone ophthalmic solution. ALLERGIES SULFA and ARFORMOTEROL. DISCUSSION 1. A total of 60 minutes was spent in counseling today, 100% of which was face to face. At today's chemotherapy teaching session we discussed her diagnosis as well as the planned chemotherapy regimen and toxicities associated with durvalumab (Imfinzi) given IV every two weeks x1 year. Handouts of the drug were provided and reviewed in detail. 2. Side effects and toxicities of chemotherapy agents included, but were not limited to: A. Bone marrow suppression, specifically neutropenia. She is instructed to contact our offices with any signs of infection. CBC will be monitored routinely. We discussed common sense approaches including routine hand washing and avoidance of crowds/sick people if neutropenic. B. GI side effects. Discussed the possibility of nausea, vomiting, diarrhea and constipation. She will receive IV antiemetics and will be prescribed antiemetics for home use. If she were to have diarrhea, recommended Imodium. If she were to have constipation, recommended Senna-S or Miralax routinely. Further interventions will be made based on side effects. C. side effects. Discussed the importance of adequate hydration (minimum 8 cups of fluid per day) and emptying the bladder on a regular basis. IV hydration can be scheduled as needed. D. Mouth sores. Recommended salt water or baking soda gargles as needed. E. Skin toxicity. Discussed that chemotherapy was very drying to the skin and mucous membranes. Recommended routine moisturizing as well as sun protection. F. Neurotoxicity. Discussed symptoms of peripheral neuropathy. She will be monitored of these symptoms and will notify us if progressive. G. Alopecia. Discussed that hair thinning can occur due to hypothyroidism, one of the endocrinopathies associated with durvalumab. H. Fatigue. Discussed that this is one of the most common complaints of patients undergoing chemotherapy. I have encouraged her to remain as active as possible, taking frequent rests as needed. I. Infusion reaction. Reviewed IV premedications. She will be monitored closely during infusions. J. Reproductive Health: Discussed importance of preventing while on chemotherapy. Discussed control options and fertility preservation. Also, to abstain from sexual intercourse for 2-3 days after chemotherapy administration. 3. I have instructed the patient to call our office if she is prescribed any new medications. It is recommended that multiple supplements or herbal medications may not be taken as these may interfere with the action of the chemotherapy. 4. Discussed dietary issues associated with chemotherapy including anorexia and changes in taste. A handout of nutrition information is given. 5. Office contact information ([phone]) is given. I have encouraged the patient to call with any issues regarding treatment. 6. A tour of the infusion room is given. She is given a packet of information including all of the above. 7. We reviewed most common side effects and risks related to endocrinopathies, to include: Central nervous system changes, meningitis-like symptoms, pneumonitis, colitis, hepatitis, nephritis, hypophysitis, among others. These were discussed at length. 8. Patient is scheduled to initiate Cycle #1 later this week, on . 9. Patient is aware that she will need to follow up one week from now for standard one-week toxicity check. 10. For her cough, I have recommended that she increase her prednisone up to 10 mg daily for the next one week, then go back down to her usual 5 mg dose. 11. I have recommended that she increase the frequency of her cough syrup. 12. Explained that she will no longer need to take dexamethasone as she did with Alimta, nor does she need to remain on Folic Acid. Explained that these will not be refilled. 13. In addition, I have ordered a two-view chest x-ray to be done today due to her cough and anterior thoracic pain, as she does report significant coughing and I would like to rule out any potential rib fracture. We will notify her of results once they are back. ADRIANNE
[2019-01-30 11:39] VITALS: BP 123/82
[2019-02-06 12:51] VITALS: BP 138/86
[2019-02-06 12:54] LABS: PLATELET COUNT, AUTOMATED 192 K/uL (150-450)
--- NOTE | 2019-02-07 13:19 | ONCOLOGY FOLLOW UP NOTE ---
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 ONCOLOGY HISTORY Patient is an 82-year-old female who presented in June with tachycardia and atrial fibrillation. CTA of the chest was negative for pulmonary embolism, but a 2.4 cm upper lobe lung mass was noted. PET CT scan on July 17, 2018, showed a 3 cm left upper lobe mass with an SUV of 8.5 with left hilar and mediastinal lymph node metastases and possible distal left paratracheal lymph node metastases. MRI of the thoracic spine did not show any evidence of metastasis. MRI of the brain was negative. CT-guided biopsy of the left upper lobe mass on September 27, 2018, was positive for a moderately to poorly differentiated, acinar-predominant adenocarcinoma consistent with lung primary. Procedure was complicated with a small pneumothorax which resolved. Began radiation on October 15, 2018. Began concurrent carboplatin and Alimta on October 17, 2018. Patient received four cycles of carbo/Alimta, last given on December 19, 2018. She has now completed radiotherapy. Patient initiated durvalumab on 01/30/19. Patient received four cycles of carbo/Alimta, last given on December 19, 2018. She has now completed radiotherapy. HISTORY OF PRESENT ILLNESS Charu is here today for followup after initiating Imfinzi/durvalumab one week ago, given on January 30, 2019. She is due for a one week toxicity check. Initially, she came in today for her labs and PICC line dressing change and told our front office and nurses that she did not have time to see me for our scheduled visit. However, I did stop in to see the patient and she has quite a few questions and updates and, as such, she did go ahead with our visit. She has had a cough that waxes and wanes. At her last visit with me, we checked a chest x-ray, which was normal. She has had some generalized fatigue but overall this has improved since completing chemoradiation. She reports occasional alternating between diarrhea and constipation. She recently followed up with her PCP, Dr. Amos. She has now initiated Eliquis 5 mg b.i.d. Apparently, she did not ever initiate this until just two weeks ago as she had some difficulty with her pharmacy coverage. Apparently, a couple of days ago she was started on metoprolol. She was also given hydrocodone tablets. Today, she tells me she had some nausea yesterday and as such stopped taking any further hydrocodone. She reports that her pain is under control. She also had some dizziness yesterday. She is wondering what is causing her symptoms. PAST MEDICAL HISTORY 1. Allergic rhinitis. 2. Osteoarthritis. 3. COPD. 4. Stage IIIA lung cancer. 5. Atrial fibrillation. 6. Glaucoma. SURGICAL HISTORY 1. Appendectomy with lysis of adhesions, September 2008. 2. Tonsillectomy. 3. Total hysterectomy. 4. Bilateral cataract surgery, 2010. FAMILY HISTORY Brother with head and neck cancer. SOCIAL HISTORY Patient is with three grown children. One son is currently living with her. 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 She drinks a cocktail every evening and occasional beer. No use of illicit drugs. MEDICATIONS 1. Aspirin 325 mg daily. 2. Albuterol nebulizer. 3. Albuterol inhaler. 4. Ibuprofen p.r.n. 5. Loratadine 10 mg daily. 6. Prednisone 5 mg daily. 7. Ranitidine 150 mg daily. 8. Dexamethasone 4 mg tablets one b.i.d. day before, of and after chemo. 9. Prednisolone ophthalmic solution. 10. Hydrocodone 5/325 mg tablets p.r.n. 11. Metoprolol succinate ER 25 mg daily. 12. Eliquis 5 mg p.o. b.i.d. ALLERGIES SULFA and ARFORMOTEROL. REVIEW OF SYSTEMS CONSTITUTIONAL: Patient denies any recent fevers, chills or night sweats. No recent infections. She does have some fatigue. HEENT: No vision changes. She does have a history of cataracts. No hearing problems. No mouth sores. No dysphagia or odynophagia, although she does have some GERD. RESPIRATORY: Patient continues to have a cough with occasional expectoration. She continues to use her supplemental oxygen. She has some dyspnea on exertion. No shortness of breath. No hemoptysis. CARDIOVASCULAR: No chest pain. No syncope or presyncope. She has a history of atrial fibrillation. She had some dizziness yesterday and today. It's better now. GASTROINTESTINAL: No abdominal pain. She had some nausea yesterday and is not sure which of her new medications may be causing this. It is very distressing for her. No vomiting. She has a history of alternating diarrhea and constipation. She has occasional abdominal cramps. No changes in bowel movements. No bright red blood per rectum or melena. She has a history of GERD. She is on pantoprazole. GENITOURINARY: No dysuria or hematuria. MUSCULOSKELETAL: She has some degenerative joint aches and has a history of arthritis. No focal areas of pain. NEURO: No headaches or convulsions. No numbness or tingling in the hands or feet. SKIN: No rash, suspicious lumps or bumps. No generalized pruritus. PSYCH: She denies any severe anxiety, severe depression, suicidal or homicidal ideation. PHYSICAL EXAMINATION VITAL SIGNS: Weight 65.5 kg, T 98.7, P 68, R 16, BP 138/86, oxygen saturation 96% on 2L O2 via nasal cannula. GENERAL: This is a pleasant 83-year old woman who appears well-hydrated, well- nourished and is in no acute distress. She has her supplemental oxygen on. HEAD: Atraumatic, normocephalic. EYES: Sclerae anicteric. ENT/MOUTH: Moist mucous membranes. No mucositis. NECK: Supple. No lymphadenopathy. LUNGS: Clear to auscultation. Diminished bases bilaterally. No focal findings. CARDIAC: Regular rate and rhythm. No ectopy. ABDOMEN: Soft, nontender, nondistended. Bowel sounds are positive x4. No organomegaly. EXTREMITIES: No clubbing, cyanosis or edema. NEURO: Patient is awake, alert and oriented x3. PSYCH: Mood and affect are appropriate. DERM: No rash, petechiae or purpura. MUSCULOSKELETAL: Gait and ambulation are steady. LABORATORY CBC today: WBC 5.6, ANC 3.9, hemoglobin 10.6, hematocrit 31.5%, platelets 192,000. CMP today: Completely normal. Thyroid panel from January 30, 2019 reveals normal TSH at 1.44, free T4 normal at 1.29, free T3 normal at 2.5. Magnesium is slightly low on January 30, 2019, at 1.5. IM[place] [facility] [place] No acute cardiopulmonary process. ASSESSMENT AND PLAN This is a pleasant 83-year old woman with stage IIIA left upper lobe lung adenocarcinoma, 3 cm, on PET scan done on July 17, 2018, with SUV 8.5 with left hilar/ aortopulmonary window/mediastinal lymph node metastases and possible lymph node metastasis in the distal left paratracheal lymph node with nonspecific uptake at the T10 vertebral body with SUV of 4.[address] correlate. MRI of the thoracic spine did not reveal any evidence of metastasis. CT-guided biopsy of left upper lobe mass done on September 27, 2018 was positive for moderately to poorly differentiated acinar/predominant adenocarcinoma consistent with lung primary. Given this information, patient's tumor was staged as stage IIIA adenocarcinoma of the left upper lobe of the left lung. She started concurrent chemoradiation with carbo/Alimta with carbo/Alimta starting on October 17, 2018. She has now completed four cycles with her last cycle given on December 19, 2018. She has completed radiotherapy. Our plan is for her to start immunotherapy with durvalumab/Imfinzi for a total of one year. She began this one week ago on January 30, 2019. She seems to have tolerated her first cycle quite well. She had some dizziness so her antihypertensive regimen has recently been adjusted and she was also started on some hydrocodone. She continues to have some GERD and cough. 1. Immunotherapy/durvalumab: Patient is one week out from Cycle #1. She has tolerated this well. We will continue on this current plan for a total of one year. 2. Dizziness: Likely attributable to recent initiation with beta lea, metoprolol 25 mg daily. Patient will be seeing Dr. Stapleton later today. I recommended that she try switching her metoprolol to bedtime dosing. Vital signs today are within normal limits. 3. Nausea: This can certainly be related to recent hydrocodone use, especially if taken on an empty stomach. She has stopped hydrocodone. I don't think her symptoms are related to durvalumab and are likely related to the recent change in her antihypertensives. Heart rate today is in the mid 60s and previously this has been in the mid 80s. 4. Patient will return to the clinic next week to initiate Cycle #2 with durvalumab. 5. She will return to the clinic as scheduled for followup. MTDD
[2019-02-13 11:47] VITALS: BP 126/61
[2019-02-13] MEDS: NS(*) 0.9% 250 ML BAG 250 ML IVPB PRN (12:35)
[2019-02-13 13:31] VITALS: BP 120/61
--- NOTE | 2019-02-13 23:58 | ONCOLOGY FOLLOW UP NOTE ---
EVENT DATE: February 13, 2019 DIAGNOSIS Left upper lobe adenocarcinoma, 3 cm. CHIEF COMPLAINT Patient is here today for followup of her left upper lobe lung cancer with adenocarcinoma, on maintenance therapy with durvalumab. ONCOLOGY HISTORY Patient is an 83-year-old female who presented with tachycardia with atrial fibrillation, and the patient had a CTA chest done on the June, which came back negative for pulmonary embolism, but a 2.4 cm left upper lobe lung mass was noted. So, the patient had a PET/CT scan done on the June, which showed a 3 cm left upper lobe mass with SUV 8.5, with left hilar/AP window/mediastinal lymph node metastases with possible distal left paratracheal lymph node metastasis. There was nonspecific uptake at T10 vertebral body with SUV 4.4, but without definitive CT correlate. MRI thoracic spine done on the June did not show any evidence of metastasis in the thoracic spine. Brain MRI done on the June was without any evidence of metastasis. CT-guided biopsy of the left upper lobe mass done on the September came back positive for moderately to poorly differentiated acinar-predominant adenocarcinoma, consistent with lung primary. Her procedure was complicated with a small pneumothorax, which resolved. Her stage is stage IIIA, given that she has mediastinal adenopathy on the same side of the lung mass. Patient received chemoradiation with carboplatin and Alimta. She started radiation therapy on the September, and she started the carboplatin and Alimta on the September. Patient received her fourth cycle of chemotherapy with carboplatin and Alimta on the November. Patient started maintenance therapy with durvalumab on the January. HISTORY OF PRESENT ILLNESS Patient is here today for followup of her left upper lobe adenocarcinoma, on maintenance therapy with durvalumab. She is complaining of cough with expectoration and wheezing. She has also occasional diarrhea. She is weak, tired, and fatigued, but generally speaking, her general condition is better than before. PAST MEDICAL HISTORY 1. Allergic rhinitis. 2. Osteoarthritis. 3. COPD. 4. Left upper lobe lung mass. PAST SURGICAL HISTORY 1. Appendectomy in September 2008. 2. Tonsillectomy. 3. Total hysterectomy. 4. Bilateral cataract surgery in 2010. 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 She drinks a cocktail every evening and occasional beer. No abuse of illicit drugs. FAMILY HISTORY Negative for cancer or blood diseases. CURRENT MEDICATIONS 1. Eliquis 5 mg twice daily. 2. Prednisone 5 mg daily. 3. Oxygen 3L per minute. 4. Albuterol nebulizer p.r.n. 5. Tylenol PM p.r.n. ALLERGIES: No known drug allergies. REVIEW OF SYSTEMS CONSTITUTIONAL: No appetite or weight change. No fever, chills, or sweating. No recent infection. HEENT: Ears: No tinnitus or hearing problem. Nose: No nasal discharge or epistaxis. Throat: No sore throat or mouth ulcers. Eyes: No diplopia or visual changes. RESPIRATORY: No shortness of breath. Patient has cough with expectoration and wheezing. No hemoptysis. CARDIOVASCULAR: No chest pain, orthopnea, or paroxysmal nocturnal dyspnea (PND). No edema. No palpitations. GASTROINTESTINAL: No nausea or vomiting. She has diarrhea. No constipation. No heartburn or swallowing difficulties. No abdominal pain. No jaundice. No hematemesis, melena, or rectal bleeding. GENITOURINARY: No hematuria or dysuria. MUSCULOSKELETAL: No pain in the muscles, joints, or bones. NEUROLOGIC: No tingling or numbness in the hands or feet. No headaches or convulsions. HEMATOLOGIC/LYMPHATIC: No bleeding or easy bruising. She is weak, tired, and fatigued. No enlarged lymph nodes. SKIN: No skin rash or lumps. PSYCHIATRIC: No anxiety or depression. PHYSICAL EXAMINATION GENERAL: Looks stable. Well developed, well nourished, and in no acute distress. VITAL SIGNS: Blood pressure 126/61, pulse 75 per minute, respirations 17 per minute, temperature 97.8, pulse ox 98% on room air. HEENT: Head: Atraumatic. No sinus tenderness to palpation. Eyes: No icterus or conjunctivitis. Mouth and Throat: No oral thrush or mucositis. NECK: Supple. No cervical or supraclavicular lymphadenopathy. LUNGS: Clear to auscultation and percussion bilaterally. HEART: Regular rate and rhythm. No gallops, murmurs, clicks, or rubs. ABDOMEN: Soft and lax. No tenderness. No hepatosplenomegaly. No masses. EXTREMITIES: No cyanosis, clubbing, or edema. LYMPHATICS: No peripheral lymphadenopathy. NEUROLOGIC: Conscious, alert, and oriented times three. No focal motor or sensory deficits. PSYCHIATRIC: Mood and affect appear normal. SKIN: No skin rash, bruise, or purpuric eruption. DIAGNOSTIC DATA CBC showed white count 5.6, hemoglobin 10.6, hematocrit 31.5, platelets 192,000. Chem panel is pending. ASSESSMENT Stage IIIA left upper lobe lung adenocarcinoma, 3 cm by PET scan done on the June, with SUV 8.5, with left hilar/aortopulmonary window/mediastinal lymph node metastases and possible lymph node metastasis in the distal left paratracheal lymph node, with nonspecific uptake at T10 vertebral body with SUV of 4.4, but without CT correlate. MRI of the thoracic spine did not reveal any evidence of metastasis. CT-guided biopsy of the left upper lobe mass done on the September came back positive for moderately to poorly differentiated acinar-predominant adenocarcinoma consistent with lung primary. Patient started concurrent chemoradiation. She started radiation therapy on the September, and she started chemotherapy with carboplatin and Alimta on the September. She completed four courses of carboplatin and Alimta on the November. Patient started maintenance therapy with durvalumab on the January. She is tolerating treatment very well currently except for some fatigue. She is due for her second dose today. I am planning to proceed with her treatment today. I will see her in two weeks with CBC, chemistry panel, free T3, free T4, magnesium, and TSH. PLAN 1. Durvalumab cycle #2. 2. Patient to return in two weeks for CBC, chem panel, TSH, free T3, free T4, and magnesium. 3. Patient to contact us for any new concerns or complaints. MTDD
[2019-02-20 11:44] VITALS: BP 129/79
[2019-02-27 11:49] VITALS: BP 110/79
[2019-02-27] MEDS: NS(*) 0.9% 250 ML BAG 250 ML IVPB PRN (13:08)
--- NOTE | 2019-02-27 23:00 | ONCOLOGY FOLLOW UP NOTE ---
EVENT DATE: February 27, 2019 CHIEF COMPLAINT Followup for non-small cell lung cancer. HISTORY OF PRESENT ILLNESS The patient is an 83-year-old female who was seen today for consideration of cycle #3 of durvalumab. She is tolerating her treatment without issue. She generally feels well, but her biggest complaint is ongoing fatigue. She states she does not get out of the house much, but is comfortable with this. She continues on Eliquis and metoprolol for atrial fibrillation. She states Dr. Stapleton recently started her on pantoprazole for an "ulcer from radiation." She notes improvement in her sternal discomfort. Otherwise, she denies any other new complaints. ONCOLOGY HISTORY Patient is an 83-year-old female who presented in June with tachycardia and atrial fibrillation. CTA of the chest was negative for pulmonary embolism, but a 2.4 cm upper lobe lung mass was noted. PET CT scan on 07/17/18 showed a 3 cm left upper lobe mass with an SUV of 8.5 with left hilar and mediastinal lymph node metastases and possible distal left paratracheal lymph node metastases. MRI of the thoracic spine did not show any evidence of metastasis. MRI of the brain was negative. CT-guided biopsy of the left upper lobe mass on 09/27/18 was positive for a moderately to poorly differentiated, acinar-predominant adenocarcinoma consistent with lung primary. Procedure was complicated with a small pneumothorax which resolved. Completed concurrent chemoradiation with carboplatin and pemetrexed from 10/17/18 through 12/19/18. Began durvalumab on 01/30/19 with plans to continue for one year. MEDICAL HISTORY 1. Allergic rhinitis. 2. Osteoarthritis. 3. COPD. 4. Stage IIIA lung cancer. 5. Atrial fibrillation. SURGICAL HISTORY 1. Appendectomy with lysis of adhesions, September 2008. 2. Tonsillectomy. 3. Total hysterectomy. 4. Bilateral cataract surgery, 2010. FAMILY HISTORY Brother with head and neck cancer. SOCIAL HISTORY Patient is with three grown children. One son is currently living with her. 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 She drinks a cocktail every evening and occasional beer. No use of illicit drugs. MEDICATIONS 1. Aspirin 325 mg daily. 2. Albuterol nebulizer. 3. Albuterol inhaler. 4. Ibuprofen p.r.n. 5. Loratadine 10 mg daily. 6. Prednisone 5 mg daily. 7. Pantoprazole 40 mg daily. 8. Eliquis 5 mg b.i.d. 9. Metoprolol ER 25 mg daily. ALLERGIES SULFA and ARFORMOTEROL. REVIEW OF SYSTEMS A 12-point review of systems is performed and is negative except as stated above. PHYSICAL EXAMINATION VITAL SIGNS: Weight 65.5 kg. BP 110/79, P 74, R 18, temp 98.2, O2 sat 95% on 2L per nasal cannula. GENERAL: Patient is a well-developed, well-nourished female in no acute distress. HEAD: Normocephalic, atraumatic. EYES: Sclerae anicteric. MOUTH: Moist mucous membranes. No lesions. NECK: Supple. No palpable adenopathy. LUNGS: Clear bilaterally, although slightly diminished in bases. No wheezing noted. CARDIAC: Heart rate regular, 74 per minute. ABDOMEN: Mild mid epigastric tenderness. Active bowel sounds. EXTREMITIES: No edema. NEUROLOGIC: Nonfocal. LABORATORY CMP today is within normal limits. Thyroid levels from 01/30/19 were all within normal limits. ASSESSMENT The patient is an 83-year-old female diagnosed with stage IIIA adenocarcinoma of the left upper lung. Completed concurrent chemoradiation with carboplantin and pemetrexed from 10/17/18 through 12/19/18. Began durvalumab 01/30/19 with plans to continue for a total of one year. PLAN 1. Lung cancer. Cycle #3 of durvalumab. She is tolerating this well. She has no immune-mediated reaction. 2. Fatigue. Ongoing. Most recent CBC revealed mild anemia. We discussed that much of this is related to undergoing treatment from September 2018 to the present. She has tried to remain as active as possible. 3. Atrial fibrillation. Continue Eliquis and metoprolol. She is now taking her metoprolol at bedtime, and this is helping somewhat with her dizziness. 4. GI. Dr. Stapleton recently prescribed pantoprazole for what she described as an "ulcer from the radiation." She does have some mild mid epigastric tenderness, but is improved. 5. Follow up in three weeks for cycle #4 of treatment or earlier if there is a problem. MTDD
[2019-03-06 14:00] VITALS: BP 129/69
[2019-03-13 11:46] VITALS: BP 131/64
[2019-03-13 13:51] VITALS: BP 112/58
--- NOTE | 2019-03-13 15:47 | ONCOLOGY FOLLOW UP NOTE ---
EVENT DATE: March 13, 2019 DIAGNOSIS Left upper lobe adenocarcinoma, 3 cm. CHIEF COMPLAINT Patient is here today for followup of her left upper lobe lung cancer, on maintenance therapy with durvalumab. ONCOLOGY HISTORY Patient is an 83-year-old female who presented with tachycardia with atrial fibrillation, and the patient had a CTA chest done on the June, which came back negative for pulmonary embolism, but a 2.4 cm left upper lobe lung mass was noted. So, the patient had a PET/CT scan done on the June, which showed a 3 cm left upper lobe mass with SUV 8.5, with left hilar/AP window/mediastinal lymph node metastases with possible distal left paratracheal lymph node metastasis. There was nonspecific uptake at T10 vertebral body with SUV 4.4, but without definitive CT correlate. MRI thoracic spine done on the June did not show any evidence of metastasis in the thoracic spine. Brain MRI done on the June was without any evidence of metastasis. CT-guided biopsy of the left upper lobe mass done on the September came back positive for moderately to poorly differentiated acinar-predominant adenocarcinoma, consistent with lung primary. Her procedure was complicated with a small pneumothorax, which resolved. Her stage is stage IIIA, given that she has mediastinal adenopathy on the same side of the lung mass. Patient received chemoradiation with carboplatin and Alimta. She started radiation therapy on the September, and she started the carboplatin and Alimta on the September. Patient received her fourth cycle of chemotherapy with carboplatin and Alimta on the November. Patient started maintenance therapy with durvalumab on the January. HISTORY OF PRESENT ILLNESS Patient is here today for followup of her stage III left upper lobe adenocarcinoma, currently on maintenance therapy with durvalumab. Patient is complaining of cough with expectoration and shortness of breath. She has some pain in her stomach because of her esophageal ulcer. She has generalized joint pains. She has also some neuropathy in her hands. She is weak, tired, and fatigued. PAST MEDICAL HISTORY 1. Allergic rhinitis. 2. Osteoarthritis. 3. COPD. 4. Left upper lobe lung mass. PAST SURGICAL HISTORY 1. Appendectomy in September 2008. 2. Tonsillectomy. 3. Total hysterectomy. 4. Bilateral cataract surgery in 2010. 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 She drinks a cocktail every evening and occasional beer. No abuse of illicit drugs. FAMILY HISTORY Negative for cancer or blood diseases. CURRENT MEDICATIONS 1. Eliquis 5 mg twice daily. 2. Prednisone 5 mg daily. 3. Oxygen 3L per minute. 4. Albuterol nebulizer p.r.n. 5. Tylenol PM p.r.n. ALLERGIES: No known drug allergies. REVIEW OF SYSTEMS CONSTITUTIONAL: No appetite or weight change. No fever, chills, or sweating. No recent infection. HEENT: Ears: No tinnitus or hearing problem. Nose: No nasal discharge or epistaxis. Throat: No sore throat or mouth ulcers. Eyes: No diplopia or visual changes. RESPIRATORY: She has cough with expectoration and shortness of breath. No hemoptysis. CARDIOVASCULAR: No chest pain, orthopnea, or paroxysmal nocturnal dyspnea (PND). No edema. No palpitations. GASTROINTESTINAL: No nausea or vomiting. No diarrhea or constipation. No change in bowel movements. No heartburn or swallowing difficulties. She has pain due to an esophageal ulcer. No jaundice. No hematemesis, melena, or rectal bleeding. GENITOURINARY: No hematuria or dysuria. MUSCULOSKELETAL: She has pain all over her joints. NEUROLOGIC: She has neuropathy in her hands. No headaches or convulsions. HEMATOLOGIC/LYMPHATIC: No bleeding or easy bruising. She is weak, tired, and fatigued. No enlarged lymph nodes. SKIN: No skin rash or lumps. PSYCHIATRIC: No anxiety or depression. PHYSICAL EXAMINATION GENERAL: Looks stable. Well developed, well nourished, and in no acute distress. VITAL SIGNS: Blood pressure 131/64, pulse 78 per minute, respirations 16 per minute, temperature 98, pulse ox 96% on room air. HEENT: Head: Atraumatic. No sinus tenderness to palpation. Eyes: No icterus or conjunctivitis. Mouth and Throat: No oral thrush or mucositis. NECK: Supple. No cervical or supraclavicular lymphadenopathy. LUNGS: Clear to auscultation and percussion bilaterally. HEART: Regular rate and rhythm. No gallops, murmurs, clicks, or rubs. ABDOMEN: Soft and lax. No tenderness. No hepatosplenomegaly. No masses. EXTREMITIES: No cyanosis, clubbing, or edema. LYMPHATICS: No peripheral lymphadenopathy. NEUROLOGIC: Conscious, alert, and oriented times three. No focal motor or sensory deficits. PSYCHIATRIC: Mood and affect appear normal. SKIN: No skin rash, bruise, or purpuric eruption. DIAGNOSTIC DATA CBC showed white count 6.3, hemoglobin 11.7, hematocrit 34.9, platelets 212,000. Chem panel is still pending. ASSESSMENT Stage IIIA left upper lobe lung adenocarcinoma, 3 cm by PET scan done on the June, with SUV 8.5, with left hilar/aortopulmonary window/mediastinal lymph node metastases and possible lymph node metastasis in the distal left paratracheal lymph node, with nonspecific uptake at T10 vertebral body with SUV of 4.4, but without CT correlate. MRI of the thoracic spine did not reveal any evidence of metastasis. CT-guided biopsy of the left upper lobe mass done on the September came back positive for moderately to poorly differentiated acinar-predominant adenocarcinoma consistent with lung primary. Patient started concurrent chemoradiation. She started the treatment on the September, and she started treatment with chemotherapy with carboplatin and Alimta on the September. She completed four courses of carboplatin and Alimta on the November. Patient started maintenance therapy with durvalumab on the January. She is tolerating treatment very well so far. I am planning to proceed with her treatment as scheduled. I will see her in two weeks with CBC, chemistry panel, free T3, free T4, TSH, and magnesium level. PLAN 1. Durvalumab as per schedule. 2. Patient to return in two weeks with CBC, chem panel, TSH, free T3, free T4, and magnesium. 3. Patient to contact us for any new concerns or complaints. MTDD
[2019-03-20 11:51] VITALS: BP 140/72
[2019-03-26 13:45] VITALS: BP 125/61
[2019-03-26 16:08] VITALS: BP 115/62
[2019-04-01 13:42] VITALS: BP 115/55
--- NOTE | 2019-04-01 15:36 | ONCOLOGY FOLLOW UP NOTE ---
EVENT DATE: April 01, 2019 CHIEF COMPLAINT Followup for non-small cell lung cancer; increased mid epigastric pain. HISTORY OF PRESENT ILLNESS Patient is an 83-year-old female who was seen today as a work-in. She continues on treatment with durvalumab and is tolerating that fairly well. She completed her concurrent chemoradiation on 12/19/18. Over the past three to four weeks, she has had increasing mid epigastric pain. Dr. Stapleton prescribed pantoprazole [address] Garcia prescribed Maalox/lidocaine, which works short term. She notes that the pain is increasing, worse when bending over and when coughing. Her weight is stable, but she feels she is not drinking enough fluids. She does not tolerate either codeine or tramadol, both causing nausea. ONCOLOGY HISTORY Patient is an 83-year-old female who presented in June with tachycardia and atrial fibrillation. CTA of the chest was negative for pulmonary embolism, but a 2.4 cm upper lobe lung mass was noted. PET/CT scan on 07/17/18 showed a 3 cm left upper lobe mass with an SUV of 8.5 with left hilar and mediastinal lymph node metastases and possible distal left paratracheal lymph node metastases. MRI of the thoracic spine did not show any evidence of metastasis. MRI of the brain was negative. CT-guided biopsy of the left upper lobe mass on 09/27/18 was positive for a moderately to poorly differentiated, acinar-predominant adenocarcinoma consistent with lung primary. Procedure was complicated with a small pneumothorax which resolved. Completed concurrent chemoradiation with carboplatin and pemetrexed from 10/17/18 through 12/19/18. Began durvalumab on 01/30/19 with plans to continue for one year. MEDICAL HISTORY 1. Allergic rhinitis. 2. Osteoarthritis. 3. COPD. 4. Stage IIIA lung cancer. 5. Atrial fibrillation. SURGICAL HISTORY 1. Appendectomy with lysis of adhesions, September 2008. 2. Tonsillectomy. 3. Total hysterectomy. 4. Bilateral cataract surgery, 2010. FAMILY HISTORY Brother with head and neck cancer. SOCIAL HISTORY Patient is with three grown children. One son is currently living with her. 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 She drinks a cocktail every evening and occasional beer. No use of illicit drugs. MEDICATIONS 1. Aspirin 325 mg daily. 2. Albuterol nebulizer. 3. Albuterol inhaler. 4. Ibuprofen p.r.n. 5. Loratadine 10 mg daily. 6. Prednisone 5 mg daily. 7. Pantoprazole 40 mg daily. 8. Eliquis 5 mg b.i.d. 9. Metoprolol ER 25 mg daily. ALLERGIES SULFA. CODEINE, TRAMADOL and ARFORMOTEROL. REVIEW OF SYSTEMS A 12-point review of systems is performed and is negative except as stated above. PHYSICAL EXAMINATION VITAL SIGNS: Weight 64.5 kg. BP 115/55, P 88, R 18, temp 97.9, O2 sat 95%. GENERAL: Patient is a well-developed, well-nourished female in no acute distress. HEAD: Normocephalic, atraumatic. EYES: Sclerae anicteric. MOUTH: Slightly dry mucous membranes. No lesions. NECK: Supple. No palpable adenopathy. LUNGS: Diminished bilaterally. CARDIOVASCULAR: Heart rate regular, 88 per minute. ABDOMEN: Soft, with mid epigastric tenderness. Active bowel sounds. EXTREMITIES: No edema. NEUROLOGIC: Nonfocal. LABORATORY No lab today. 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 Completed concurrent chemoradiation with carboplantin and pemetrexed from 10/17/18 through 12/19/18. Began durvalumab 01/30/19 with plans to continue for a total of one year. PLAN 1. Lung cancer. Patient will be seen on 04/10/19 for her next cycle of durvalumab. She is tolerating this well. 2. GI. Increasing mid epigastric pain over the past three to four weeks. Dr. Stapleton started her on pantoprazole. Dr. Garcia has prescribed lidocaine and Maalox; however, neither have been terribly effective. I will increase her pantoprazole to 40 mg b.i.d. She will be referred to Dr. Garcia or Dr. Verma for possible EGD. Patient is in agreement with this plan. 3. Fatigue, ongoing. She is discouraged as she is "not doing much." 4. Follow up on 04/10/19 for her next cycle of treatment. MTDD
[2019-04-03 11:14] VITALS: BP 115/55
[~2019-04-10] VITALS: Ht 150.5 cm; Wt 65.0 kg
[~2019-04-10 14:00] MED LIST changes: +ALTEPLASE RECOMB 2 MG VIAL IVP PRN; +DEXTROSE 5%(*) 100 ML BAG 100 ML IVPB PRN; +DURVALUMAB IV ONE; +Magic Mouthwash PO; +NS 0.9% IV ONE; +NS(*) 0.9% 100 ML BAG 100 ML IVPB PRN; -OMEP-125 PO; +OMEP-126 PO; -RANI-366 PO; +RANI-54 PO; +SUCR1ORA13 PO; +TRAM-420 PO; +WATER FOR INJ,STERILE 20 ML IVP PRN
[2019-04-10 14:23] VITALS: BP 113/70
[2019-04-10] MEDS ORDERED: DURVALUMAB IV ONE (15:10)
[2019-04-10] MEDS ORDERED: NS 0.9% IV ONE (15:10)
[2019-04-10] MEDS: NS(*) 0.9% 250 ML BAG 250 ML IVPB PRN (15:27)
--- NOTE | 2019-04-10 15:49 | ONCOLOGY FOLLOW UP NOTE ---
EVENT DATE: April 10, 2019 DIAGNOSIS Left upper lobe adenocarcinoma, 3 cm. CHIEF COMPLAINT Patient is here today for followup of her left upper lobe lung cancer, on maintenance therapy with durvalumab. ONCOLOGY HISTORY Patient is an 83-year-old female who presented with tachycardia with atrial fibrillation, and the patient had a CTA chest done on the June, which came back negative for pulmonary embolism, but a 2.4 cm left upper lobe lung mass was noted. So, the patient had a PET/CT scan done on the June, which showed a 3 cm left upper lobe mass with SUV 8.5, with left hilar/AP window/mediastinal lymph node metastases with possible distal left paratracheal lymph node metastasis. There was nonspecific uptake at T10 vertebral body with SUV 4.4, but without definitive CT correlate. MRI thoracic spine done on the June did not show any evidence of metastasis in the thoracic spine. Brain MRI done on the June was without any evidence of metastasis. CT-guided biopsy of the left upper lobe mass done on the September came back positive for moderately to poorly differentiated acinar-predominant adenocarcinoma, consistent with lung primary. Her procedure was complicated with a small pneumothorax, which resolved. Her stage is stage IIIA, given that she has mediastinal adenopathy on the same side of the lung mass. Patient received chemoradiation with carboplatin and Alimta. She started radiation therapy on the September, and she started the carboplatin and Alimta on the September. Patient received her fourth cycle of chemotherapy with carboplatin and Alimta on the November. Patient started maintenance therapy with durvalumab on the January. HISTORY OF PRESENT ILLNESS Patient is here today for her cycle #6 of maintenance durvalumab for her stage III left upper lobe lung cancer. Patient is doing fine currently except having some sweating, cough with expectoration, and shortness of breath. She is weak, tired, and fatigued. Patient had EGD done on the March, and the results are still pending. She received tramadol for pain, which causes vomiting, so the patient stopped that drug. PAST MEDICAL HISTORY 1. Allergic rhinitis. 2. Osteoarthritis. 3. COPD. 4. Left upper lobe lung mass. PAST SURGICAL HISTORY 1. Appendectomy in September 2008. 2. Tonsillectomy. 3. Total hysterectomy. 4. Bilateral cataract surgery in 2010. 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 She drinks a cocktail every evening and occasional beer. No abuse of illicit drugs. FAMILY HISTORY Negative for cancer or blood diseases. CURRENT MEDICATIONS 1. Eliquis 5 mg twice daily. 2. Prednisone 5 mg daily. 3. Oxygen 3L per minute. 4. Albuterol nebulizer p.r.n. 5. Tylenol PM p.r.n. ALLERGIES: No known drug allergies. REVIEW OF SYSTEMS CONSTITUTIONAL: No appetite or weight change. No fever or chills. Patient has some sweating. No recent infection. HEENT: Ears: No tinnitus or hearing problem. Nose: No nasal discharge or epistaxis. Throat: No sore throat or mouth ulcers. Eyes: No diplopia or visual changes. RESPIRATORY: She has cough with expectoration and shortness of breath. No hemoptysis. CARDIOVASCULAR: No chest pain, orthopnea, or paroxysmal nocturnal dyspnea (PND). No edema. No palpitations. GASTROINTESTINAL: No nausea or vomiting. No diarrhea or constipation. No change in bowel movements. No heartburn or swallowing difficulties. No abdominal pain. No jaundice. No hematemesis, melena, or rectal bleeding. GENITOURINARY: No hematuria or dysuria. MUSCULOSKELETAL: No pain in the muscles, joints, or bones. NEUROLOGIC: No tingling or numbness in the hands or feet. No headaches or convulsions. HEMATOLOGIC/LYMPHATIC: No bleeding or easy bruising. She is weak, tired, and fatigued. No enlarged lymph nodes. SKIN: No skin rash or lumps. PSYCHIATRIC: No anxiety or depression. PHYSICAL EXAMINATION GENERAL: Looks stable. Well developed, well nourished, and in no acute distress. VITAL SIGNS: Blood pressure 113/70, pulse 113 per minute, respirations 18 per minute, temperature 97.3, pulse ox 97% on room air. HEENT: Head: Atraumatic. No sinus tenderness to palpation. Eyes: No icterus or conjunctivitis. Mouth and Throat: No oral thrush or mucositis. NECK: Supple. No cervical or supraclavicular lymphadenopathy. LUNGS: Clear to auscultation and percussion bilaterally. HEART: Regular rate and rhythm. No gallops, murmurs, clicks, or rubs. ABDOMEN: Soft and lax. No tenderness. No hepatosplenomegaly. No masses. EXTREMITIES: No cyanosis, clubbing, or edema. LYMPHATICS: No peripheral lymphadenopathy. NEUROLOGIC: Conscious, alert, and oriented times three. No focal motor or sensory deficits. PSYCHIATRIC: Mood and affect appear normal. SKIN: No skin rash, bruise, or purpuric eruption. DIAGNOSTIC DATA CBC showed white count 6.3, hemoglobin 11.7, hematocrit 34.9, platelets 212,000. TSH was 1.92. Magnesium 1.7. PET/CT scan done on the February showed treatment response. The left upper lobe central has decreased in size and the metabolic activity. The left hilar AP window and the left paratracheal lymphadenopathy has decreased in size and metabolic activity without any other sites of metastatic disease. ASSESSMENT Stage IIIA left upper lobe lung adenocarcinoma, 3 cm by PET scan done on the June, with SUV 8.5, with left hilar/aortopulmonary window/mediastinal lymph node metastases and possible lymph node metastasis in the distal left paratracheal lymph node, with nonspecific uptake at T10 vertebral body with SUV of 4.4, but without CT correlate. MRI of the thoracic spine did not reveal any evidence of metastasis. CT-guided biopsy of the left upper lobe mass done on the September came back positive for moderately to poorly differentiated acinar-predominant adenocarcinoma consistent with lung primary. Patient received chemoradiation, and she received four courses of carboplatin and Alimta during radiation therapy between the September through the November. She started maintenance durvalumab therapy on the January. She finished five courses so far, and I am planning to proceed with her sixth course today. I will see her in two weeks with CBC, chemistry panel, free T3, free T4, TSH, and magnesium level. Her repeat PET/CT scan on the February did reveal a response to her current treatment. PLAN 1. Durvalumab. This will be cycle #6. 2. Patient to return in two weeks with CBC, chem panel, TSH, free T3, free T4, and magnesium level. 3. Patient to contact us for any new concern or complaints. MTDD
[2019-04-10 16:42] VITALS: BP 114/79
--- NOTE | 2019-04-10 21:14 | ONCOLOGY FOLLOW UP NOTE ---
EVENT DATE: April 10, 2019 DIAGNOSIS Left upper lobe adenocarcinoma, 3 cm. CHIEF COMPLAINT Patient is here today for her maintenance durvalumab therapy for her lung cancer. ONCOLOGY HISTORY Patient is an 83-year-old female who presented with tachycardia with atrial fibrillation, and the patient had a CTA chest done on the June, which came back negative for pulmonary embolism, but a 2.4 cm left upper lobe lung mass was noted. So, the patient had a PET/CT scan done on the June, which showed a 3 cm left upper lobe mass with SUV 8.5, with left hilar/AP window/mediastinal lymph node metastases with possible distal left paratracheal lymph node metastasis. There was nonspecific uptake at T10 vertebral body with SUV 4.4, but without definitive CT correlate. MRI thoracic spine done on the June did not show any evidence of metastasis in the thoracic spine. Brain MRI done on the June was without any evidence of metastasis. CT-guided biopsy of the left upper lobe mass done on the September came back positive for moderately to poorly differentiated acinar-predominant adenocarcinoma, consistent with lung primary. Her procedure was complicated with a small pneumothorax, which resolved. Her stage is stage IIIA, given that she has mediastinal adenopathy on the same side of the lung mass. Patient received chemoradiation with carboplatin and Alimta. She started radiation therapy on the September, and she started the carboplatin and Alimta on the September. Patient received her fourth cycle of chemotherapy with carboplatin and Alimta on the November. Patient started maintenance therapy with durvalumab on the January. HISTORY OF PRESENT ILLNESS Patient is here today for followup of her left upper lobe cancer, on maintenance therapy with durvalumab. Patient is doing fine currently except having some cough with expectoration and shortness of breath. She has also some sweating. She is weak, tired, and fatigued. As per patient, she had recently an EGD on the March, and the result is still pending. She was prescribed tramadol for the pain, but she had vomiting from that, which she stopped. PAST MEDICAL HISTORY 1. Allergic rhinitis. 2. Osteoarthritis. 3. COPD. 4. Left upper lobe lung mass. PAST SURGICAL HISTORY 1. Appendectomy in September 2008. 2. Tonsillectomy. 3. Total hysterectomy. 4. Bilateral cataract surgery in 2010. 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 She drinks a cocktail every evening and occasional beer. No abuse of illicit drugs. FAMILY HISTORY Negative for cancer or blood diseases. CURRENT MEDICATIONS 1. Eliquis 5 mg twice daily. 2. Prednisone 5 mg daily. 3. Oxygen 3L per minute. 4. Albuterol nebulizer p.r.n. 5. Tylenol PM p.r.n. ALLERGIES: No known drug allergies. REVIEW OF SYSTEMS CONSTITUTIONAL: No appetite or weight change. No fever or chills. Patient has sweating. No recent infection. HEENT: Ears: No tinnitus or hearing problem. Nose: No nasal discharge or epistaxis. Throat: No sore throat or mouth ulcers. Eyes: No diplopia or visual changes. RESPIRATORY: She has cough with expectoration and shortness of breath. No hemoptysis. CARDIOVASCULAR: No chest pain, orthopnea, or paroxysmal nocturnal dyspnea (PND). No edema. No palpitations. GASTROINTESTINAL: No nausea or vomiting. No diarrhea or constipation. No change in bowel movements. No heartburn or swallowing difficulties. No abdominal pain. No jaundice. No hematemesis, melena, or rectal bleeding. GENITOURINARY: No hematuria or dysuria. MUSCULOSKELETAL: No pain in the muscles, joints, or bones. NEUROLOGIC: No tingling or numbness in the hands or feet. No headaches or convulsions. HEMATOLOGIC/LYMPHATIC: No bleeding or easy bruising. She is weak, tired, and fatigued. No enlarged lymph nodes. SKIN: No skin rash or lumps. PSYCHIATRIC: No anxiety or depression. PHYSICAL EXAMINATION GENERAL: Looks stable. Well developed, well nourished, and in no acute distress. VITAL SIGNS: Blood pressure 113/70, pulse 113 per minute, respirations 18 per minute, temperature 97.3, pulse ox 97% on room air. HEENT: Head: Atraumatic. No sinus tenderness to palpation. Eyes: No icterus or conjunctivitis. Mouth and Throat: No oral thrush or mucositis. NECK: Supple. No cervical or supraclavicular lymphadenopathy. LUNGS: Clear to auscultation and percussion bilaterally. HEART: Regular rate and rhythm. No gallops, murmurs, clicks, or rubs. ABDOMEN: Soft and lax. No tenderness. No hepatosplenomegaly. No masses. EXTREMITIES: No cyanosis, clubbing, or edema. LYMPHATICS: No peripheral lymphadenopathy. NEUROLOGIC: Conscious, alert, and oriented times three. No focal motor or sensory deficits. PSYCHIATRIC: Mood and affect appear normal. SKIN: No skin rash, bruise, or purpuric eruption. DIAGNOSTIC DATA CBC showed white count 6.3, hemoglobin 11.7, hematocrit 34.9, platelets 212,000. ANC is 4.6. TSH 1.92. Magnesium 1.7. PET/CT scan done on the February revealed treatment response. Her left upper lobe central mass has decreased in size and hypermetabolic activity. The left hilar AP window and left paratracheal lymphadenopathy has decreased in size and metabolic activity. No sites of new hypermetabolic metastatic disease recognized. ASSESSMENT Stage IIIA left upper lobe lung adenocarcinoma, 3 cm by PET scan done on the June, with SUV 8.5, with left hilar/aortopulmonary window/mediastinal lymph node metastases and possible lymph node metastasis in the distal left paratracheal lymph node, with nonspecific uptake at T10 vertebral body with SUV of 4.4, but without CT correlate. MRI of the thoracic spine did not reveal any evidence of metastasis. CT-guided biopsy of the left upper lobe mass done on the September came back positive for moderately to poorly differentiated acinar-predominant adenocarcinoma consistent with lung primary. Patient started concurrent chemoradiation on the September, and she received carboplatin and Alimta with her radiation therapy. She completed four courses of carboplatin and Alimta on the November. She started maintenance therapy with durvalumab on the January. She completed five cycles so far, and she is due today for her sixth cycle. I am planning to proceed with that treatment. She had a PET scan on the February DICTATION ENDS HERE. MTDD
== END 2019-04-15 ==
LOC: ONC 14:00
PROVIDERS: ATTEND Internal Medicine Hematology
DX: C34.12 Malignant neoplasm of upper lobe, left bronchus or lung (principal); R91.8 Other nonspecific abnormal finding of lung field; Z87.891 Personal history of nicotine dependence
CPT/HCPCS: 36592; 71046; 83735; 84439; 84443; 84480; 84481; 85025; 85027; 96365; 96413; G0463; J7050; J9173; 82040; 82247; 82310; 82374; 82435; 82565; 82947; 84075; 84132; 84155; 84295; 84450; 84460; 84520; 99212

== ENCOUNTER → 2019-05-06 | Outpatient (CLI) | payer OTHER, MEDICAID ==
[~2019-05-06] MED LIST changes: -ALTEPLASE RECOMB 2 MG VIAL IVP PRN; -DEXTROSE 5%(*) 100 ML BAG 100 ML IVPB PRN; -DURVALUMAB IV ONE; +METO50TA19 PO; -NS 0.9% IV ONE; -NS(*) 0.9% 100 ML BAG 100 ML IVPB PRN; -WATER FOR INJ,STERILE 20 ML IVP PRN
--- NOTE | 2019-05-06 18:08 | EKG ---
FACILITY: [facility] PATIENT NAME: LASHAUN RODRIGUEZ : [id number] MR: [id number] V: [id number] EXAM DATE: ORDERING PHYSICIAN: FLORES RENDON TECHNOLOGIST: PERFECTO Test Reason : CHEST PAIN Blood Pressure : / mmHG Vent. Rate : 141 BPM Atrial Rate : 141 BPM P-R Int : 000 ms QRS Dur : 080 ms QT Int : 298 ms P-R-T Axes : 000 042 054 degrees QTc Int : 456 ms Supraventricular tachycardia with premature supraventricular complexes and with occasional premature ventricular complexes Otherwise normal ECG When compared with ECG of 04-FEB-2019 13:46, Sinus rhythm has replaced Atrial flutter ST elevation has replaced ST depression in Inferior leads Nonspecific T wave abnormality no longer evident in Inferior leads Referred By: SARAH Confirmed By:
== END ==
LOC: RESP 15:00
PROVIDERS: ATTEND Internal Medicine
DX: I48.2 Chronic atrial fibrillation (principal)